=== PATIENT | female | born 1935 | race Caucasian/White ===

== ENCOUNTER → 2019-11-17 14:12 | Outpatient (REF) | payer MEDICARE, SELFPAY | LOC: ANHLAB 14:12 | PROVIDERS: PCP Family Medicine; Visit Provider Nurse Practitioner | DX: L57.0 Actinic keratosis (principal) | CPT/HCPCS: 88305 ==

== ENCOUNTER → 2019-12-03 12:24 | Outpatient (REF) | payer MEDICARE, SELFPAY | LOC: ANHLAB 12:24 | PROVIDERS: PCP Family Medicine; Visit Provider Nurse Practitioner | DX: L85.8 Other specified epidermal thickening (principal) | CPT/HCPCS: 88305 ==

== ENCOUNTER 2020-12-10 18:17 | Emergency (ER) | payer MEDICARE, SELFPAY ==
--- NOTE | 2020-12-10 18:53 | ED.WOUNDLAC ---
HPI - Wound/Laceration General Chief Complaint: Wound/Laceration Stated Complaint: Cut finger Lt hand Source: patient and RN notes reviewed Limitations: no limitations History of Present Illness HPI narrative: The right-handed patient , on several routine meds, presents with finger injury. Patient states several hours prior to arrival she sustained a deep abrasion/tangential avulsion cut to her distal, left index finger while working on new furniture with scissors. She complains of continued mild bleeding; aspirin is her only vasoactive medication. Symptoms are mild, best with compression or elevation but still bleeding after several hours. She declines tetanus immunization; discussed plan to provide wound cleansing and Surgicel application. Related Data Home Medications Medication Instructions Recorded Confirmed aspirin 81 mg tablet 81 mg PO DAILY 11/17/19 12/11/20 cetirizine 10 mg tablet 5 mg PO DAILY 11/17/19 12/11/20 cholecalciferol (vitamin D3) 50 50 mcg PO DAILY 11/17/19 12/11/20 mcg (2,000 unit) capsule ezetimibe 10 mg tablet 10 mg PO DAILY tablet 11/17/19 12/11/20 metoprolol succinate 50 mg 50 tablet PO DAILY 11/17/19 12/11/20 tablet,extended release 24 hr triamterene 37.5 1 tablet PO DAILY tablet 11/17/19 12/11/20 mg-hydrochlorothiazide 25 mg tablet vit C 250 mg-vit E 90 mg-zinc 40 2 tablet PO DAILY cap 11/17/19 12/11/20 mg-copper 1 oy-syqihq-cxzwey capsule Allergies Allergy/AdvReac Type Severity Reaction Status Date / Time metronidazole [From Flagyl] Allergy Intermediate Gastrointestinal Verified 12/11/20 11:06 Upset terbinafine [From Lamisil] Allergy Intermediate Gastrointestinal Verified 12/11/20 11:06 Upset lisinopril Allergy Unknown Unknown Verified 12/11/20 11:06 codeine AdvReac Intermediate Nausea and Verified 12/11/20 11:06 Vomiting Review of Systems Review of Systems: General/Constitutional: No weight loss,fever Eyes: N0: Redness,discharge Ears/Nose/Throat: No: Epistaxis,ear discharge Respiratory: Denies: Hemoptysis Gastrointestinal: No Vomiting, Bleeding-rectal Skin: No Lumps, eruption Neurologic: No Focal Weakness,Sz Hematologic: Denies: Petechiae/Purpura Psychiatric: No: Suicida ideationl All Other Systems: Reviewed and Negative [facility] Surgical History Surgical History History of cholecystectomy 1972 History of thyroid surgery 1986 Family History Family History Other Family history of malignant neoplasm of thyroid Hypertension Social History Social History Smoking status: Never smoker Alcohol intake: never Substance use: never Substance use type: does not use Comments At time of signature, agree with nursing past medical, surgical, social and family history. There is no relevant family history pertinent to the presenting complaint Exam Narrative: General Appearance: Well appearing, No distress Mouth/Throat: Normal appearing, Normal lips,: Supple Respiratory: Airway patent, No respiratory distress Musculoskeletal: Full ROM Skin: Warm, Dry; smaller ~4 x15 mm long deep abrasion/tangential avulsion radial aspect of the index MCP J area Neurological: A&O x3, CN II-X intact Psychiatric: Normal mood, Normal affect Course Vital Signs Vital signs: Vital Signs Temperature 96.9 F L 12/10/20 19:00 Pulse Rate 71 12/10/20 19:00 Respiratory Rate 16 12/10/20 19:00 Blood Pressure 146/57 H 12/10/20 19:00 Pulse Oximetry 100 12/10/20 19:00 Temperature 96.9 F L 12/10/20 19:00 Pulse Rate 71 12/10/20 19:00 Respiratory Rate 16 12/10/20 19:00 Blood Pressure 146/57 H 12/10/20 19:00 Pulse Oximetry 100 12/10/20 19:00 Discharge Plan Discharge Clinical Impression: Abrasion Patient Disposition: Home, Self-Care Condition: Imp
[2020-12-10 19:00] VITALS: BP 146/57; PULSE 71; RESP 16; TEMP 36.1; O2SAT 100
== END 2020-12-10 19:05 | disposition home or self-care (01) ==
PROVIDERS: Emergency Provider Emergency Medicine; PCP Family Medicine
DX: S60.417A Abrasion of left little finger, initial encounter (principal); W27.2XXA Contact with scissors, initial encounter; E78.00 Pure hypercholesterolemia, unspecified; I10 Essential (primary) hypertension; M19.90 Unspecified osteoarthritis, unspecified site; E89.0 Postprocedural hypothyroidism
CPT/HCPCS: 99213; G0463

== ENCOUNTER 2022-09-20 09:50 | Outpatient (CLI) | payer MEDICARE, SELFPAY ==
--- NOTE | ~2022-09-20 | US_ITS ---
EXAMINATION: US renal BI DATE: 09/20/2022 10:46 INDICATION: N18.32 - Chronic kidney disease, stage 3b TECHNIQUE: Multiple grayscale and Doppler ultrasound images of the kidneys were obtained. COMPARISON: 01/05/2015; CT abdomen 01/20/2009 FINDINGS: The right kidney measures 8.9 x 3.7 x 5.2 cm. The left kidney measures 8.0 x 3.9 x 3.9 cm. The kidney s demonstrate increased parenchymal echogenicity with cortical scarring. 1.3 cm circumscribed exophyt ic right lower pole lesion, with low-level internal echogenicity, 74 Hounsfield units in the prior CT , unchanged in size or morphology. There is mild right pelviectasis. The bladder is normal. IMPRESSION: Medical renal disease. Mild right hydronephrosis. Hemorrhagic or proteinaceous right inferior pole cy st. Reviewed, dictated and finalized at location K. IMPRESSION: Medical renal disease. Mild right hydronephrosis. Hemorrhagic or proteinaceous right inferior pole cyst.
== END 2022-09-20 09:51 | disposition home or self-care (01) ==
LOC: ANHIMG 09:53
PROVIDERS: PCP Family Medicine; Visit Provider Internal Medicine Nephrology
DX: N18.32 Chronic kidney disease, stage 3b (principal)
CPT/HCPCS: 76775

== ENCOUNTER 2022-10-01 09:35 | Outpatient (CLI) | payer MEDICARE, SELFPAY ==
--- NOTE | ~2022-10-01 | NM_ITS ---
EXAMINATION: LAURA luna renal scan DATE: 10/01/2022 10:57 INDICATION: Hydronephrosis TECHNIQUE: 7.8 mCi Tc-99m MAG3 was administered IV. 40 mg furosemide was administered IV immediately afterward. The patient was scanned in the supine position. A posterior abdominal radionuclide angiog adilia was obtained. A subsequent time course of static images of the kidneys, ureters, and bladder was obtained. COMPARISON: None FINDINGS: The posterior abdominal radionuclide angiogram and sequential static images show normal size, positio n, and morphology of the kidneys. Peak renal parenchymal uptake was 1.8 min in left kidney and 6.5 mi n in right kidney (normal peak 3-5 minutes). The relative early renal uptake was 47% on the left and 53% on the right (<40% is abnormal). No abnormalities of the ureters or bladder are seen. T1/2 for clearance of activity from the left kidney and proximal collecting system was 10.7 minutes. T1/2 for clearance of activity from the right kidney and proximal collecting system was 28 minutes. Notes on interpretation: T1/2 <10 minutes is normal, 10-15 minutes is low grade obstruction of questi onable clinical significance, 15-20 minutes is partial obstruction that is likely clinically signific ant, >20 minutes is high grade obstruction. Note that false positives may be seen with supine positio hudson, dehydration, severely dilated nonobstructed kidney, atonic collecting system, poor renal functi on, and chronic furosemide use. IMPRESSION: 1. Symmetric kidney function. 2. Delayed activity clearance from the right kidney which would be consistent with high-grade obstru ction although severity could be overestimated in the setting of coincidental dehydration, atonic col lecting system, poor renal function or chronic furosemide use. Reviewed, dictated and finalized at location B. IMPRESSION: 1. Symmetric kidney function. 2. Delayed activity clearance from the right kidney which would be consistent with high-grade obstruction although severity could be overestimated in the set ting of coincidental dehydration, atonic collecting system, poor renal function or chronic furosemide use.
== END 2022-10-01 09:36 | disposition home or self-care (01) ==
PROVIDERS: PCP Family Medicine; Visit Provider Internal Medicine Nephrology
DX: N13.30 Unspecified hydronephrosis (principal)
CPT/HCPCS: 78708; A9562

== ENCOUNTER 2022-10-31 09:17 | Outpatient (CLI) | payer MEDICARE, SELFPAY ==
--- NOTE | ~2022-10-31 | XR_ITS ---
Clinical Indication: Cough PA and lateral views of the chest: Comparison: 11/21/2016 Findings: The lungs are clear, without evidence of focal consolidation or pleural effusion. COPD alex jaspreet present. Cardiomediastinal silhouette is within normal limits. Stable chronic right rib fracture deformities noted. Impression: COPD. Clear lungs. Reviewed, dictated and finalized at location . Impression: COPD. Clear lungs.
== END 2022-10-31 09:18 | disposition home or self-care (01) ==
PROVIDERS: PCP Family Medicine; Visit Provider Physician Assistant Medical
DX: R05.3 Chronic cough (principal); J44.9 Chronic obstructive pulmonary disease, unspecified
CPT/HCPCS: 71046

== ENCOUNTER 2023-01-10 10:16 | Outpatient (CLI) | payer MEDICARE, SELFPAY ==
--- NOTE | ~2023-01-10 | US_ITS ---
EXAMINATION: US venous doppler UE RT DATE: 01/10/2023 11:48 INDICATION: Right upper extremity pain TECHNIQUE: Grayscale ultrasound images without and with compression and Doppler ultrasound images of the right upper extremity veins were obtained. COMPARISON: None. FINDINGS: The right internal jugular vein, subclavian vein, axillary vein, brachial veins, basilic vein, cephal ic vein, radial vein, and ulnar vein are patent. There is an approximately 2.3 x 0.8 cm complex hypoe choic area corresponding to the region of clinical interest. IMPRESSION: 1. No evidence of deep venous thrombosis. 2. Complex hypoechoic area corresponding to the region of clinical interest which could reflect under lying hematoma or other injury. Recommend continued clinical follow-up with additional imaging if cli nical findings do not resolve. Reviewed, dictated and finalized at location L. SECRETARY IMPRESSION: 1. No evidence of deep venous thrombosis. 2. Complex hypoechoic area corresponding to the region of clinical interest whi ch could reflect underlying hematoma or other injury. Recommend continued clini latisha follow-up with additional imaging if clinical findings do not resolve.
== END 2023-01-10 10:17 | disposition home or self-care (01) ==
PROVIDERS: PCP Family Medicine; Visit Provider Physician Assistant Medical
DX: M79.601 Pain in right arm (principal); M79.89 Other specified soft tissue disorders
CPT/HCPCS: 93971

== ENCOUNTER 2023-01-31 12:33 | Outpatient (CLI) | payer MEDICARE, SELFPAY ==
--- NOTE | ~2023-01-31 | MR_ITS ---
MRI of the right shoulder Technique: Axial proton-density fat-sat images, coronal proton density fat-sat and T2 fat-sat images, and sagittal T1-weighted and T2 fat-sat images were acquired. Clinical History: Pain Findings: There is mild AC joint degenerative change. There is mild bony reactive change of the dista l clavicle. Coracoclavicular, coracoacromial, and coracohumeral ligaments are intact. There is full-thickness tearing of the anterior to central portion of the distal supraspinatus tendon , with regional full-thickness tear measuring 1.0 x 1.0 cm in extent. There is background moderate mckeon praspinatus and infraspinatus tendinosis. No partial or full-thickness infraspinatus tendon tear seen . Subscapularis tendon is intact. Tendon of long head of the biceps is not clearly visualized, presum ably ruptured and retracted distally. No definite labral tear identified. Probable sub-labral foramen at the anterosuperior aspect. Inferior humeral ligament is intact. No significant degenerative change of the glenohumeral joint. Th ere is fluid in the subacromial/subdeltoid bursa, presumably related to the underlying rotator cuff t ear. No muscle atrophy or edema evident. Impression: 1.0 x 1.0 cm full-thickness tear of the distal supraspinatus tendon insertion. Probable complete rupture of the proximal long head biceps tendon, with retraction distally beyond th e [id number] of the exam. Mild AC joint degenerative change. Reviewed, dictated and finalized at location . 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 Probable complete rupture of the proximal long head biceps tendon, with retract ion distally beyond the [id number] of the exam. Mild AC joint degenerative change.
== END 2023-01-31 12:34 | disposition home or self-care (01) ==
PROVIDERS: PCP Family Medicine; Visit Provider Nurse Practitioner Family
DX: M79.601 Pain in right arm (principal); M79.89 Other specified soft tissue disorders; R29.2 Abnormal reflex; M25.511 Pain in right shoulder
CPT/HCPCS: 73221

== ENCOUNTER 2023-02-20 10:39 | Outpatient (CLI) | payer MEDICARE, SELFPAY ==
--- NOTE | ~2023-02-20 | US_ITS ---
Renal-Bladder ultrasound Clinical History: Chronic kidney disease Technique: Real-time sonographic imaging of the kidneys and urinary bladder was performed. Findings: The right kidney measures 8.5 cm in length and the left kidney measures 8.8 cm. There is mi ld fullness of the right renal pelvis. No left hydronephrosis. Renal cortical echogenicity is within normal limits. No renal mass lesion is identified. The urinary bladder is moderately distended at the time of this exam. No intraluminal echoes are iden tified. No abnormal wall thickening is seen. Impression: Suspected right extrarenal pelvis versus possibly minimal hydronephrosis. Reviewed, dictated and finalized at location M. 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
== END 2023-02-20 10:40 | disposition home or self-care (01) ==
PROVIDERS: PCP Family Medicine; Visit Provider Internal Medicine Nephrology
DX: N18.32 Chronic kidney disease, stage 3b (principal)
CPT/HCPCS: 76775

== ENCOUNTER 2023-03-12 14:25 | Outpatient (NON) | payer MEDICARE, SELFPAY | END 2023-03-12 14:26 | disposition home or self-care (01) | LOC: ANHLAB 03-13 14:27 | PROVIDERS: PCP Family Medicine; Visit Provider Nurse Practitioner | DX: L85.8 Other specified epidermal thickening (principal) | CPT/HCPCS: 88305 ==

== ENCOUNTER 2023-03-21 07:00 | Outpatient (NON) | payer MEDICARE, SELFPAY | END 2023-03-21 07:01 | disposition home or self-care (01) | PROVIDERS: PCP Family Medicine; Visit Provider Nurse Practitioner | DX: L85.8 Other specified epidermal thickening (principal) | CPT/HCPCS: 88305 ==

== ENCOUNTER 2024-04-26 13:27 | Emergency (ER) | payer MEDICARE, SELFPAY ==
--- NOTE | ~2024-04-26 | XR_ITS ---
CHEST RADIOGRAPH, PA AND LATERAL CLINICAL HISTORY: weakness, cough . COMPARISON: 10/31/2022 TECHNIQUE: PA and lateral views of the chest. FINDINGS The cardiomediastinal silhouette is unremarkable. The lungs are clear. Evidence of prior fracture deformity of the right upper ribs. IMPRESSION: No focal infiltrate or effusion. Reviewed, dictated and finalized at location A. GE PREVENTION COORDINATOR
--- OUTSIDE RECORDS SUMMARY | 2024-04-26 13:29 | XMS_ITS | Continuity of Care Document ---
Author Organization [facility] Address [address] [place] [address] [place] [address] Phone Care Team Providers Care Cam Maker Name Role Phone Jocelyn Kessler Unavailable Unavailable Procedures Procedure Date Office/outpatient Visit, Est Post-op Follow-up Visit Post-op Follow-up Visit Post-op Follow-up Visit Remove Cataract, Insert Lens Eye Exam & Treatment IOL[employer]-Professional Advance Directives Directive Yes / No Effective Date File Name No Information Encounters Encounter Description Practice Location Reason(s) For Visit Diagnoses Date Provider Providers Copied on Encounter Office/outpat ient Visit, Est [facility], [address] [place] [address] [address], [place], [place], [id number], tel:[phone] [facility] No Information 7-200 7 Victoria [address] , [address], [place], [address], [place]. tel:[phone] [facility], [address] [place] [address] [address], [place], [place], [id number], [place] tel:[phone] [facility] No Information 9[address] Victoria [address] , [address], [place], [address], [place]. tel:[phone] [facility], [address] [place] [address] [address], [place], [place], [id number], tel:[phone] [facility] No Information May-1 1-200 7 Victoria Banks. [address] [facility] , [address], [place], [place], [facility], . tel:[phone] [facility], [address] [place] [address] [address], [place], [place], [id number], tel:[phone] [facility] No Information May-0 3-200 7 Victoria [address]ru[address]. [address] [facility] , [address], [place], [place], [facility], . tel:[phone] [facility], [address] [place] [address] [address], [place], [place], [id number], tel:[phone] [facility] No Information May-0 2-200 7 Victoria Banks. [address] [facility] , [address], [place], [place], [facility], [place]. tel:[phone] [facility], [address] [place] [address] [address], [place], [place], [id number], tel:[phone] [facility] No Information Apr-2 0-200 7 Victoria Banks. [address] [facility] , [address], [place], [place], [facility], [place]. tel:[phone] Referring Provider: Jocelyn Gonzalez [address] [facility] [address], [place], [place], [facility]. tel:[phone] Family History Family Member Type Diagnosis Age At Onset No Information Payers Payer name Insurance type Covered democrat ID Jamiea janinamiguel(s) [place] [id number] Social History Type Description Quantity Date Captured Comments Sex Female Smoking Status No Information Chief Complaint And Reason For Visit No Information Reason For Referral Reason For Referral No Information History Of Present Illness Encounter Date Complaint History Of Prese nt Illness No Information Functional Status Date Functional Assessmen t No Information Instructions Date Instruction Additional Infor mation No Information Assessments Type Assessment Date No Information Patient Care Teams Name Effective Dates (start - stop) Status Members No Information
--- OUTSIDE RECORDS SUMMARY | 2024-04-26 13:29 | XMS_ITS | Clinical Summary ---
Author Organization [facility] Address [address] [place] [address] Phone Care Team Providers Care Java Manager Name Role Phone Sandro Kim MD Primary Care Provider [phone] Allergies Active Allergy Reactions Criticality Noted Date Comments Codeine 10/19/2018 Lisinopril Cough 10/19/2018 Meloxicam 07/10/2016 Metronidazole 10/19/2018 Terbinafine Hcl 10/19/2018 Medications Medication Sig Dispensed Refills Start Date End Date Status aspirin (ASPIR-LOW) 81 MG EC tablet 01/01/2015 Active albuterol HFA (PROAIR HFA) 108 (90 Base) MCG/ACT inhaler 2 q6h prn 0 04/07/2018 Active Cholecalciferol (VITAMIN D3) 1000 units capsule 2 daily 0 01/01/2015 Active metoprolol succinate XL (TOPROL-XL) 50 MG 24 hr tablet 1 daily 0 10/09/2017 Active Multiple Vitamins-Minerals (PRESERVISION AREDS 2) capsule 1 daily 0 10/08/2016 Active levothyroxine (SYNTHROID, LEVOTHROID) 50 MCG tablet 01/01/2015 Active SYMBICORT 160-4.5 MCG/ACT inhaler INL 2 PFS PO BID IN THE MORNING AND IN THE GAYLE 1 09/15/2018 Active ezetimibe (ZETIA) 10 MG tablet TK 1 T PO D 03/02/2019 Active pravastatin (PRAVACHOL) 40 MG tablet TK 1 T PO D 03/02/2019 Active mupirocin (BACTROBAN) 2 % ointment CINDI TOPICALLY AA BID 09/22/2019 Active ipratropium (ATROVENT) 0.06 % nasal spray USE 2 SPRAYS NASALLY TWICE DAILY 08/17/2020 Active triamterene-hydroCHL OROthiazide (MAXZIDE-25) 37.5-25 MG per tablet TAKE 1 TABLET BY MOUTH 1 TIME EACH DAY 90 tablet 4 06/19/2021 Active Active Problems Problem Noted Date Diagnosed Date Mixed hyperlipidemia 04/22/2019 Chronic obstructive pulmonary disease 11/12/2017 Proteinuria 04/10/2017 Personal history of non-Hodgkin lymphoma 018 Rheumatoid arthritis 04/10/2017 Stage 3b chronic kidney disease 06/08/2015 Essential (primary) hypertension 06/08/2015 Immunizations Name Administration Dates Next Due DTaP 03/04/2013 Influenza Split High Dose Pr eservative Free IM 01/06/2017 Influenza TIV (IM) 01/20/2019,03/04/2014, 014 Influenza, Quadrivalent 12/03/2015 Pneumococcal Conjugate 13-Valent 11/02/2017,07/2016 Pneumococcal Polysaccharide 03/04/2006 Tdap 10/10/2013 Zoster 10/21/2015 Family History Medical History Relation Comments Cerebrovascular accident Father Kidney disease Neg Hx Kidney stone Neg Hx Relation Status Comments Father Social History Tobacco Use Types Packs/Day Years Used Date Smoking Tobacco: Never Smokeless Tobacco: Never Alcohol Use Standard Drinks/Week Comments Not Currently 0 (1 standard drink = 0.6 oz pur e alcohol) Sex and Gender Information Value Date Recorded Sex Assigned at Not on file Gender Identity Not on file Sexual Orientation Not on file Last Filed Vital Signs Vital Sign Reading Time Taken Comments Blood Pressure 108/60 10/18/2021 9:38 AM CDT Pulse 72 10/18/2021 9:38 AM CDT Temperature 35.7 C (96.3 F) 10/18/2021 9:38 AM CDT Respiratory Rate - - Oxygen Saturation - - Inhaled Oxygen Concentration - - Weight 49 kg (108 lb) 10/18/2021 9:38 AM CDT Height 149.9 cm (4' 11 ) 10/18/2021 9:38 AM CDT Body Mass Index 21.81 10/18/2021 9:38 AM CDT Plan of Treatment Health Maintenance Due Date Last Done Comments Influenza Vaccine (#1) 2023 9, 03/04/2014, 03/04/2013 Pneumococcal PPSV23/PCV13 65 + Years / Low and Medium Risk Completed 11/02/2017, 01/06/2017, 03/04/2006 Care Teams Java Manager Relationship Specialty Start Date End Date Sandro Kim MD [address] [place] [address] PCP - General Family Medicine 10/22/18
--- OUTSIDE RECORDS SUMMARY | 2024-04-26 13:29 | XMS_ITS | Clinical Summary ---
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 Active cetirizine (ZYRTEC) 10 MG tablet Take 1 tablet (10 mg total) by mouth daily. Active levothyroxine (SYNTHROID) 50 MCG tablet Take 1 tablet (50 mcg total) by mouth every morning. Active triamterene-hydroCH LOROthiazide (DYAZIDE) 37.5-25 MG capsule Take 1 capsule by mouth daily. Active metoprolol succinate ER (TOPROL-XL) 50 MG 24 hr tablet Take by mouth daily. Active aspirin EC (ECOTRIN) 81 MG tablet Take 1 tablet (81 mg total) by mouth daily. Active vitamin D3 10 mcg tablet Take 1 tablet (10 mcg total) by mouth daily. Active Multiple Vitamins-Minerals (PRESERVISION AREDS 2 OR) Active benzonatate (TESSALON) 100 MG capsule Take 1 capsule (100 mg total) by mouth 3 (three) times daily as needed for Cough. 20 capsule 5 04/29/19 25 Active traMADol (ULTRAM) 50 MG tabletIndications:A cute Pain < 3 Day Supply Take 0.5 tablets (25 mg total) by mouth every 6 (six) hours as needed for Pain. Indications: Acute Pain < 3 Day Supply 5 tablet 5 Active ondansetron (ZOFRAN-ODT) 4 MG disintegrating tablet Take 1 tablet (4 mg total) by mouth every 8 (eight) hours as needed for Nausea. 20 tablet 5 Active Encounters Date Type Department Care Team Description 04/22/2024 12:52 PM RADIATION PROTECTION SPECIALIST - 04/22/2024 4:30 PM RADIATION PROTECTION SPECIALIST Emergency [facility] Emergency Room [address] [place] [address] Francisco Barreto MD Cough Discharge Disposition: Home or Self Care (Routine Discharge) 04/22/2024 Travel from Last 3 Months Social History Tobacco Use Types Packs/Day Years Used Date Smoking Tobacco: Never Assessed Comments Unknown Sex and Gender Information Value Date Recorded Sex Assigned at Female 04/22/2024 12:49 PM RADIATION PROTECTION SPECIALIST Legal Sex Female 12:38 PM RADIATION PROTECTION SPECIALIST Gender Identity Not on file Sexual Orientation Not on file Last Filed Vital Signs Vital Sign Reading Time Taken Comments Blood Pressure 140/82 04/22/2024 4:36 PM RADIATION PROTECTION SPECIALIST Pulse 65 04/22/2024 4:36 PM RADIATION PROTECTION SPECIALIST Temperature 36.6 C (97.8 F) 04/22/2024 12:58 PM RADIATION PROTECTION SPECIALIST Respiratory Rate 16 04/22/2024 4:36 PM RADIATION PROTECTION SPECIALIST Oxygen Saturation 98% 04/22/2024 4:36 PM RADIATION PROTECTION SPECIALIST Inhaled Oxygen Concentration - - Weight 45.4 kg (100 lb) 04/22/2024 12:58 PM RADIATION PROTECTION SPECIALIST Height 152.4 cm (5') 04/22/2024 12:58 PM RADIATION PROTECTION SPECIALIST Body Mass Index 19.53 04/22/2024 12:58 PM RADIATION PROTECTION SPECIALIST Plan of Treatment Health Maintenance Due Date Last Done Comments Annual Medicare Wellness Visit 2001 RSV Immunization or 60+ Years (1 - 1-dose 75+ series) 07/02/2011 Zoster Vaccines (2 of 3) 12/16/2015 10/21/2015 DTaP, Tdap and Td Vaccines (3 - Td or Tdap) 10/11/2023 10/10/2013, 03/04/2013 COVID-19 Vaccine (3 - season) 2023 06/01/2020, 05/03/2020 Influenza Adult (#1) 2023 03/17/2021, 01/20/2019, 01/06/2017, Additional history exists Pneumococcal Vaccine: 65+ Years Completed 11/02/2017, 01/06/2017, 03/04/2006 Meningococcal B Vaccine Aged Out No l onger eligible based on patient's age to complete this topic Meningococcal Vaccine Aged Out No ena huy eligible based on patient's age to complete this topic RSV Immunizations Under 20 Months Aged Out No longer eligible based on patient's age to complete this topic Procedures Procedure Name Priority Date/Time Associated Diagnosis Comments CT ABD+PEL W CON STAT 04/22/2024 3:25 PM RADIATION PROTECTION SPECIALIST URINALYSIS MICRO ONLY STAT 04/22/2024 2:35 PM RADIATION PROTECTION SPECIALIST HC URINALYSIS AUTO W/O MICRO STAT 04/22/2024 2:35 PM RADIATION PROTECTION SPECIALIST XR CHEST PORTABLE STAT 04/22/2024 1:2 5 PM RADIATION PROTECTION SPECIALIST STREP A RAPID STAT 04/22/2024 1:25 PM RADIATION PROTECTION SPECIALIST ECG 12-LEAD STAT 04/22/2024 1:20 PM RADIATION PROTECTION SPECIALIST CORONAVIRUS (COVID 19) STAT 1:10 PM RADIATION PROTECTION SPECIALIST PRO-BRAIN NATRIURETIC PEPTIDE STAT 04/22/2024 1:00 PM RADIATION PROTECTION SPECIALIST TROPONIN, QUANT STAT 04/22/2024 1:00 PM RADIATION PROTECTION SPECIALIST COMPREHENSIVE METABOLIC PANEL STAT 04/22/2024 1:00 PM RADIATION PROTECTION SPECIALIST CBC W/DIFF AUTOMATED STAT 04/22/2024 1:00 PM RADIATION PROTECTION SPECIALIST INFLUENZA A & B STAT 04/22/2024 12:10 PM RADIATION PROTECTION SPECIALIST RESP SYNCYTIAL VIRUS STAT 04/22/2024 12:10 PM RADIATION PROTECTION SPECIALIST from Last 3 Months Results * CT ABD+PEL W CON (04/22/2024 3:25 PM RADIATION PROTECTION SPECIALIST) Anatomical Region Laterality Modality Abdomen Computed Tomogra phy 04/22/2024 3:32 PM RADIATION PROTECTION SPECIALIST Impressions 04/22/2024 3:58 PM RADIATION PROTECTION SPECIALIST IMPRESSION: SMALL HIATAL HERNIA. SOLITARY SUBCENTIMETER PROBABLE INTRAHEPATIC AND BILATERAL RENAL CORTICAL CYSTS, ALTHOUGH TOO SMALL TO CHARACTERIZE. 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 Referred By: Interpreted By: Elijah Pretty MD, 04/22/2024 3:32 PM Narrative 04/22/2024 3:58 PM RADIATION PROTECTION SPECIALIST [facility] [address] [facility] [place] [address] EXAM: CT ABD+PEL W CON INDICATION: Mid and lower abdominal pelvic pain. TECHNIQUE: CT of the abdomen and pelvis, from the lung bases to pubic symphysis, performed. Patient received 75 mL Isovue 370 with no adverse reaction. Multiplanar reformatted images were created and reviewed. A radiation dose lowering technique was used for this procedure, which may include, but is not limited to, dose reduction technique, automated exposure control, the use of iterative reconstruction, ALARA (As Low As Reasonably Achievable) techniques, and Image Gently techniques. COMPARISON EXAM: None FINDINGS: No consolidation or effusion in either lung base. Small hiatal hernia. Small probable intrahepatic cyst in the posterior segment of the right lobe. Normal size spleen. No pancreatic or peripancreatic abnormality. No adrenal mass or enlargement. Bilateral hypodense renal lesions, several of which are too small to characterize. Urinary bladder is partially collapsed and unremarkable. Uterus and ovaries are surgically absent and/or atrophic. No bowel obstruction or free air. Normal appendix. Colonic diverticula with no diverticulitis. No abdominal or pelvic adenopathy or free fluid. Tortuous abdominal aorta with moderate atheromatous disease and partially calcified plaque. No aneurysm or significant abdominal aortic branch vessel stenosis or occlusion. 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 No acute skeletal abnormality. Procedure Note Elijah Pretty MD - 04/22/2024 [facility] [address] [place] [address] EXAM: CT ABD+PEL W CON INDICATION: Mid and lower abdominal pelvic pain. TECHNIQUE: CT of the abdomen and pelvis, from the lung bases to pubicsymphysis, performed. Patient received 75 mL Isovue 370 with no adversereaction. Multiplanar reformatted images were created and reviewed. A radiation dose lowering technique was used for this procedure, which mayinclude, but is not limited to, dose reduction technique, automatedexposure control, the use of iterative reconstruction, ALARA (As Low AsReasonably Achievable) techniques, and Image Gently techniques. COMPARISON EXAM: None FINDINGS: No consolidation or effusion in either lung base. Small hiatalhernia. Small probable intrahepatic cyst in the posterior segment of theright lobe. Normal size spleen. No pancreatic or peripancreaticabnormality. No adrenal mass or enlargement. Bilateral hypodense renallesions, several of which are too small to characterize. Urinary bladderis partially collapsed and unremarkable. Uterus and ovaries aresurgically absent and/or atrophic. No bowel obstruction or free air.Normal appendix. Colonic diverticula with no diverticulitis. Noabdominal or pelvic adenopathy or free fluid. Tortuous abdominal aortawith moderate atheromatous disease and partially calcified plaque. Noaneurysm or significant abdominal aortic branch vessel stenosis orocclusion. Mild thoracolumbar and sacral spondylosis and pelvicarthritis. No acute skeletal abnormality. IMPRESSION: SMALL HIATAL HERNIA. SOLITARY SUBCENTIMETER PROBABLE INTRAHEPATIC AND BILATERAL RENAL CORTICALCYSTS, ALTHOUGH TOO SMALL TO CHARACTERIZE. 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 Referred By: Interpreted By: Elijah Pretty MD, 04/22/2024 3:32 PM Francisco Barreto MD CT Final Result * (ABNORMAL) URINALYSIS (04/22/2024 2:35 PM RADIATION PROTECTION SPECIALIST) COLOR (U) YELLOW 04/22/2024 2:48 PM RADIATION PROTECTION SPECIALIST [facility] TRANSPARENCY HAZY 04/22/2024 2:48 PM RADIATION PROTECTION SPECIALIST [facility] SPECIFIC GRAVITY (U) 1.010 1.000 - 1.030 04/22/2024 2:48 PM RADIATION PROTECTION SPECIALIST [facility] U PH 6.0 5.0 - 9.0 04/22/2024 2:48 PM RADIATION PROTECTION SPECIALIST [facility] LEUKOCYTES (U) NEGATIVE NEGATIVE 04/22/2024 2:48 PM RADIATION PROTECTION SPECIALIST [facility] NITRITES NEGATIVE NEGATIVE 04/22/2024 2:48 PM [facility] PROTEIN RANDOM (U) 1+(A) NEGATIVE 04/22/2024 2:48 PM RADIATION PROTECTION SPECIALIST [facility] GLUCOSE (U) NEGATIVE NEGATIVE 04/22/2024 2:48 PM RADIATION PROTECTION SPECIALIST [facility] KETONES MG/DL (U) NEGATIVE NEGATIVE 04/22/2024 2:48 PM [facility] BILIRUBIN (U) NEGATIVE NEGATIVE 04/22/2024 2:48 PM RADIATION PROTECTION SPECIALIST [facility] BLOOD (U) TRACE(A) NEGATIVE 04/22/2024 2:48 PM [facility] URINE, STRAIGHT CATH 04/22/2024 2:35 PM RADIATION PROTECTION SPECIALIST Francisco Barreto MD URINE ORDERABLES Final Result [facility] [address] [place] [address], * URINALYSIS MICRO ONLY (04/22/2024 2:35 PM RADIATION PROTECTION SPECIALIST) WBC/HPF NONE SEEN 0 - 5 /HPF 04/22/2024 2:48 PM RADIATION PROTECTION SPECIALIST [facility] RBC/HPF 0-5 0 - 5 /HPF 04/22/2024 2:48 PM RADIATION PROTECTION SPECIALIST [facility] EPI/HPF FEW /HPF 04/22/2024 2:48 PM RADIATION PROTECTION SPECIALIST [facility] 04/22/2024 2:35 PM RADIATION PROTECTION SPECIALIST Francisco Barreto MD URINE ORDERABLES Final Result [facility] [address] [place] [id number], * XR CHEST PORTABLE (04/22/2024 1:25 PM RADIATION PROTECTION SPECIALIST) Anatomical Region Laterality Modality Chest Radiographic Tasia ging 04/22/2024 1:36 PM RADIATION PROTECTION SPECIALIST Impressions 04/22/2024 1:37 PM RADIATION PROTECTION SPECIALIST IMPRESSION: NO ACUTE CHEST DISEASE. Referred By: Interpreted By: Elijah Pretty MD, 04/22/2024 1:36 PM Narrative 04/22/2024 1:37 PM RADIATION PROTECTION SPECIALIST [facility] [address] [facility] [place] [address] EXAM: XR CHEST PORTABLE INDICATION: Cough. TECHNIQUE: AP upright view of the chest obtained. COMPARISON EXAM: None FINDINGS: Mild hyperinflation with pleural-parenchymal scarring. No acute consolidation or effusion. Normal heart size and pulmonary vascular caliber. Old healed right-sided rib fracture. No acute skeletal abnormality. Procedure Note Elijah Pretty MD - 04/22/2024 [facility] [address] [facility] [place] [address] EXAM: XR CHEST PORTABLE INDICATION: Cough. TECHNIQUE: AP upright view of the chest obtained. COMPARISON EXAM: None FINDINGS: Mild hyperinflation with pleural-parenchymal scarring. No acuteconsolidation or effusion. Normal heart size and pulmonary vascularcaliber. Old healed right-sided rib fracture. No acute skeletalabnormality. IMPRESSION: NO ACUTE CHEST DISEASE. Referred By: Interpreted By: Elijah Pretty MD, 04/22/2024 1:36 PM Francisco Barreto MD GENERAL IMAGING Final Result * STREP A RAPID (04/22/2024 1:25 PM RADIATION PROTECTION SPECIALIST) RAPID STREP TEST NEGATIVE NEGATIVE 04/22/2024 1:38 PM RADIATION PROTECTION SPECIALIST [facility] 04/22/2024 1:25 PM RADIATION PROTECTION SPECIALIST us Francisco Barreto MD MICROBIOLOGY - GENERAL ORDERABL ES Final Result [facility] [address] [place] [address], * ECG 12 lead (04/22/2024 1:20 PM RADIATION PROTECTION SPECIALIST) 04/22/2024 1:20 PM RADIATION PROTECTION SPECIALIST Narrative [facility] RAD - 04/22/2024 5:15 PM RADIATION PROTECTION SPECIALIST [facility] Test Date: 2024-04-22 Pat Name: [facility] Department: Room: EXAM 303 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1935 Requested By: FRANCISCO BARRETO Order Number: [id number] Reading MD: Mateo Flores Measurements Intervals [place] Rate: 61 P: 88 WA: 165 QRS: 60 QRSD: 89 T: 78 QT: 402 QTc: 407 Interpretive Statements SINUS RHYTHM WITH FREQUENT SUPRAVENTRICULAR PREMATURE COMPLEXES IN A BIGEMINAL PATTERN ABNORMAL RHYTHM ECG No previous ECG available for comparison ATION PROTECTION SPECIALIST Procedure Note Mateo Flores MD - 04/22/2024 [facility] Test Date: 2024-04-22 Pat Name: [facility] Department: Room: EXAM 303 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1935 Requested By: FRANCISCO Conley Number: [id number] Reading MD: Mateo Flores Measurements Intervals [place] Rate: 61 P: 88 WA: 165 QRS: 60 QRSD: 89 T: 78 QT: 402 QTc: 407 Interpretive Statements SINUS RHYTHM WITH FREQUENT SUPRAVENTRICULAR PREMATURE COMPLEXES IN A BIGEMINAL PATTERN ABNORMAL RHYTHM ECG No previous ECG available for comparison ATION PROTECTION SPECIALIST Francisco Barreto MD ECG ORDERABLES Final Result Performing Organization Address [facility]/ZIP Co de Phone Number [facility] ([facility] RAD * CORONAVIRUS (COVID-19) MOLECULAR (04/22/2024 1:10 PM RADIATION PROTECTION SPECIALIST) Pathologist [facility] CORONAVIRUS SARS COV 2 RNA NEGATIVE NEGATIVE 04/22/2024 1:31 PM RADIATION PROTECTION SPECIALIST [facility] Comment: NEGATIVE RESULTS DO NOT RULE OUT COVID 19 AND SHOULD NOT BE USED THE SOLE BASIS FOR TREATMENT OR PATIENT MANAGEMENT DECISIONS, INCLUDING INFECTION CONTROL DECISIONS. NEGATIVE RESULTS SHOULD BE CONSIDERED IN THE CONTEXT OF A PATIENT'S RECENT EXPOSURES, HISTORY AND THE PRESENCE OF CLINICAL SIGNS AND SYMPTOMS CONSISTENT WITH COVID 19. THE ID NOW COVID-19 2.0 TEST HAS BEEN AUTHORIZED BY THE FDA UNDER EAU FOR USE BY AUTHORIZED LABORATORIES. PERFORMED BY NUCLEIC ACID AMPLIFICATION FOR MOLECULAR QUALITATIVE DETECTION OF SARS-COV-2. SPECIMEN TYPE NASAL 04/22/2024 1:26 PM RADIATION PROTECTION SPECIALIST [facility] NASOPHARYNGEAL SWAB / Unknown 04/22/2024 1:10 PM RADIATION PROTECTION SPECIALIST Francisco Barreto MD MICROBIOLOGY - GENERAL ORDERABL ES Final Result Performing Organization Address [facility]/ZIP Co de Phone Number [facility] [address] [place] [address], * (ABNORMAL) PRO-BRAIN NATRIURETIC PEPTIDE (04/22/2024 1:00 PM RADIATION PROTECTION SPECIALIST) Pathologist [facility] PRO-B TYPE NATRIURETIC PEPTIDE 891(H) <450 PG/ML 04/22/2024 1:50 PM RADIATION PROTECTION SPECIALIST [facility] Comment: CUT POINTS ESTABLISHED BY INTERNATIONAL COLLABORATIVE ON NT PROBNP (ICON) STUDY (2006). AGE INDEPENDENT: <300 PG/ML HAS A 99% NEGATIVE PREDICTIVE VALUE FOR EXCLUDING ACUTE CHF <50 YEARS: >450 PG/ML IS CONSISTENT WITH ACUTE CHF 50-75 YEARS: >900 PG/ML IS CONSISTENT WITH ACUTE CHF >75 YEARS: >1800 PG/ML IS CONSISTENT WITH ACUTE CHF IN PATIENTS WITH RENAL INSUFFICIENCY (GFR <60), >1200 PG/ML YIELDS A DIAGNOSTIC SENSITIVITY AND SPECIFICITY OF 89% AND 72% FOR ACUTE CHF. 04/22/2024 1:00 PM RADIATION PROTECTION SPECIALIST us Francisco Barreto MD LABORATORY Final Result [facility] [address] [place] [address], * (ABNORMAL) COMPREHENSIVE METABOLIC PANEL (04/22/2024 1:00 PM RADIATION PROTECTION SPECIALIST) GLUCOSE 117(H) 70 - 99 MG/DL 04/22/2024 1:50 PM [facility] BUN 19(H) 7 - 18 MG/DL 04/22/2024 1:50 PM [facility] CREATININE S/P/B 1.17(H) 0.55 - 1.02 MG/DL 04/22/2024 1:50 PM [facility] SODIUM S/P/B 132(L) 136 - 145 MMOL/L 04/22/2024 1:50 PM [facility] POTASSIUM S/P/B 3.8 3.5 - 5.1 MMOL/L 04/22/2024 1:50 PM [facility] CHLORIDE S/P/B 93(L) 100 - 108 MMOL/L 04/22/2024 1:50 PM [facility] CO2 31.6 21 - 32 MMOL/L 04/22/2024 1:50 PM [facility] CALCIUM S/P/B 9.0 8.5 - 10.1 MG/DL 04/22/2024 1:50 PM [facility] BILIRUBIN TOTAL S/P/B 0.4 0.2 - 1.2 MG/DL 04/22/2024 1:50 PM [facility] TOTAL PROTEIN S/P/B 7.1 6.4 - 8.2 G/DL 04/22/2024 1:50 PM [facility] ALBUMIN S/P/B 4.0 3.4 - 5.0 G/DL 04/22/2024 1:50 PM [facility] AST 38(H) 15 - 37 U/L 04/22/2024 1:50 PM [facility] ALT 43 14 - 55 U/L 04/22/2024 1:50 PM [facility] ALKALINE PHOSPHATASE S/P/B 82 50 - 136 U/L 04/22/2024 1:50 PM [facility] ANION GAP 7.4 5 - 15 MMOL/L 04/22/2024 1:50 PM [facility] BUN CREATININE RATIO 16.2 6 - 26 04/22/2024 1:50 PM [facility] A/G RATIO 1.3 1.0 - 2.0 RATIO 04/22/2024 1:50 PM [facility] GFR ESTIMATE 45(L) >90 ML/MIN/1.7 3 M2 04/22/2024 1:50 PM [facility] Comment: NOTE: eGFR is not calculated for patients <18 years of age. This is an estimated GFR calculation using the new CKD EPI creatinine equation without race and so does not require a correction factor for race. This estimated GFR should not be used for calculating drug doses. 04/22/2024 1:00 PM RADIATION PROTECTION SPECIALIST Francisco Barreto MD LABORATORY Final Result [facility] [address] [place] [address], * (ABNORMAL) CBC W/DIFF AUTOMATED (04/22/2024 1:00 PM RADIATION PROTECTION SPECIALIST) WBC 4.92 4.4 - 11.0 x10'3/uL 04/22/2024 1:27 PM RADIATION PROTECTION SPECIALIST [facility] RBC 4.05(L) 4.50 - 5.10 x10'6/uL 04/22/2024 1:27 PM [facility] HGB 12.5 12.3 - 15.3 G/DL 04/22/2024 1:27 PM [facility] HCT 36.9 35.9 - 44.6 % 04/22/2024 1:27 PM [facility] MCV 91.1 80.0 - 96.0 FL 04/22/2024 1:27 PM [facility] MCH 30.9 25.3 - 30.9 PG 04/22/2024 1:27 PM [facility] MCHC 33.9 31.0 - 34.1 G/DL 04/22/2024 1:27 PM [facility] RDW 12.3(L) 12.4 - 15.1 % 04/22/2024 1:27 PM [facility] PLT 218 151 - 353 x10'3/uL 04/22/2024 1:27 PM [facility] MPV 9.2(L) 9.6 - 12.0 FL 04/22/2024 1:27 PM [facility] RBC MORPHOLOGY NORMAL 04/22/2024 1:27 PM [facility] PLT MORPH. NORMAL 04/22/2024 1:27 PM [facility] WBC MORPHOLOGY NORMAL 04/22/2024 1:27 PM [facility] LYMPHOCYTES % 31.7 15.8 - 45.0 % 04/22/2024 1:27 PM [facility] NEUTROPHILS % 59.0 42.1 - 71.9 % 04/22/2024 1:27 PM [facility] MONOCYTES % 8.5 5.7 - 12.5 % 04/22/2024 1:27 PM [facility] EOSINOPHILS 0.0 0.0 - 5.6 % 04/22/2024 1:27 PM [facility] BASOPHILS 0.4 0.0 - 1.3 % 04/22/2024 1:27 PM [facility] ABS. NEUTROPHILS 2.90 1.40 - 6.00 x10'3/uL 04/22/2024 1:27 PM [facility] IMMATURE GRANS % 0.4 0.0 - 0.5 % 04/22/2024 1:27 PM [facility] ABS. LYMPHOCYTES 1.56 0.80 - 4.70 x10'3/uL 04/22/2024 1:27 PM [facility] 04/22/2024 1:00 PM RADIATION PROTECTION SPECIALIST us Francisco Barreto MD LABORATORY Final Result [facility] [address] [place] [address], * TROPONIN, QUANT (04/22/2024 1:00 PM RADIATION PROTECTION SPECIALIST) Pathologist [facility] TROPONIN I HIGH SENSITIVITY 17 0 - 50 ng/L 04/22/2024 1:47 PM RADIATION PROTECTION SPECIALIST [facility] Comment: HIGH DOSES OF BIOTIN, TROPONIN-SPECIFIC AUTOANTIBODIES, AND ANTIBODY THERAPY CONTAINING HAMA MAY INTERFERE WITH THIS TEST RESULT. CORRELATION TO CLINICAL HISTORY AND PRESENTATION RECOMMENDED. 04/22/2024 1:00 PM RADIATION PROTECTION SPECIALIST us Francisco Barreto MD LABORATORY Final Result Performing Organization Address [facility] Co de Phone Number [facility] [address] [place] [address], [place] [phone] * INFLUENZA A & B (04/22/2024 12:10 PM RADIATION PROTECTION SPECIALIST) SPECIMEN TYPE NASOPHARYNGEAL SWAB 04/22/2024 1:27 PM RADIATION PROTECTION SPECIALIST [facility] INFLUENZA A NEGATIVE NEGATIVE 04/22/2024 1:47 PM RADIATION PROTECTION SPECIALIST [facility] INFLUENZA B NEGATIVE NEGATIVE 04/22/2024 1:47 PM RADIATION PROTECTION SPECIALIST [facility] NASOPHARYNGEAL SWAB / Unknown 04/22/2024 12:10 PM RADIATION PROTECTION SPECIALIST us Francisco Barreto MD MICROBIOLOGY - GENERAL ORDERABL ES Final Result Performing Organization Address [facility] de Phone Number [facility] [address] [place] [address], [place] [phone] * RESP SYNCYTIAL VIRUS (04/22/2024 12:10 PM RADIATION PROTECTION SPECIALIST) SPECIMEN TYPE NASOPHARYNGEAL SWAB 04/22/2024 1:26 PM RADIATION PROTECTION SPECIALIST [facility] RAPID RSV NEGATIVE NEGATIVE 04/22/2024 1:46 PM RADIATION PROTECTION SPECIALIST [facility] NASOPHARYNGEAL SWAB / Unknown 04/22/2024 12:10 PM RADIATION PROTECTION SPECIALIST us Francisco Barreto MD MICROBIOLOGY - GENERAL ORDERABL ES Final Result Performing Organization Address [facility] Co de Phone Number [facility] [address] [place] [address], from Last 3 Months Insurance MEDICARE GENERIC - COMMERCIAL Care Teams 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
--- OUTSIDE RECORDS SUMMARY | 2024-04-26 13:30 | XMS_ITS | Referral Summary ---
Author Organization [facility] [place] [address] Address [address] [place] [address] Care Team Providers Care House Mother Name Role Phone Sandro Kim MD Primary Care Provider [phone] Allergies Active Allergy Reactions Criticality Noted Date Comments Codeine Vomiting Low 10/19/2018 Lisinopril Cough Low 10/19/2018 Metronidazole Other (See comments) Low 10/19/2018 Terbinafine Hcl Other (See comments) Low 10/19/2018 Medications albuterol HFA (ProAir HFA) 90 mcg/actuation inhaler Inhale 04/07/2018 Active aspirin 81 mg enteric coated tablet 01/01/2015 Active levothyroxine (SYNTHROID) 50 mcg tablet Take 1 tablet (50 mcg total) by mouth daily 10/12/2022 Active triamterene-hyd roCHLOROthiazid e 37.5-25 mg per tablet Take 1 tablet/capsul e by mouth daily 09/24/2022 Active metoprolol XL (TOPROL-XL) 50 mg extended release tablet Take 1 tablet (50 mg total) by mouth daily 10/02/2022 Active cholecalciferol (VITAMIN D-3) 1,000 unit capsule Take 2 capsules (2,000 Units total) by mouth daily 01/01/2015 Active ezetimibe (ZETIA) 10 mg tablet TAKE 1 TABLET BY MOUTH DAILY 90 tablet 3 08/08/2023 Active Active Problems Problem Noted Date Diagnosed Date Other specified cardiac arrhythmias 11/30/2022 Hyperlipidemia 11/30/2022 Secondary hypertension 11/30/2022 Social History Tobacco Use Types Packs/Day Years Used Date Smoking Tobacco: Never Passive Smoke Exposure: Past Smokeless Tobacco: Never Tobacco Cessation:Counseling Given: Not Answered Comments Unknown Sex and Gender Information Value Date Recorded Sex Assigned at Not on file Legal Sex Female 9:33 PM VETERINARY MILK SPECIALIST Gender Identity Not on file Sexual Orientation Not on file Last Filed Vital Signs Vital Sign Reading Time Taken Comments Blood Pressure 126/72 01/15/2024 10:43 AM VETERINARY MILK SPECIALIST Pulse 60 01/15/2024 10:43 AM VETERINARY MILK SPECIALIST Temperature - - Respiratory Rate 16 01/15/2024 10:43 AM VETERINARY MILK SPECIALIST Oxygen Saturation 92% 11/30/2022 11:24 AM CDT Inhaled Oxygen Concentration - - Weight 47.6 kg (105 lb) 01/15/2024 10:43 AM VETERINARY MILK SPECIALIST Height 149.9 cm (4' 11 ) 01/15/2024 10:43 AM VETERINARY MILK SPECIALIST Body Mass Index 21.21 01/15/2024 10:43 AM VETERINARY MILK SPECIALIST Plan of Treatment Not on file Insurance MEDICARE COMMERCIAL GENERIC MEDICARE COMMERCIAL GENERIC Care Teams House Mother Relationship Specialty Start Date End Date Sandro Kim MD [address] [address] PCP - General Family Medicine 01/15/24
--- OUTSIDE RECORDS SUMMARY | 2024-04-26 13:30 | XMS_ITS | Clinical Summary ---
Author Organization [facility] [place] [address] Address [address] [place] [address] Care Team Providers Care Head Miller Name Role Phone Sandro Kim MD Primary Care Provider Allergies Active Allergy Reactions Criticality Noted Date [...] arrhythmias 11/30/2022 Hyperlipidemia 11/30/2022 Secondary hypertension 11/30/2022 Surgical History Surgery Date Site/Laterality Comments HYSTERECTOMY CHOLECYSTECTOMY THYROIDECTOMY, PARTIAL Medical History Medical History Date Comments Thyroid disease Hypertension Asthma Family History Medical History Relation Name Comments Arrhythmia Brother Hypertension Father Hypertension Mother Hypertension Sister Relation Name Status Comments Brother Alive Father Mother Sister Alive Social History Tobacco Use Types Packs/Day Years Used Date Smoking Tobacco: Never Passive Smoke Exposure: Past Smokeless Tobacco: Never Tobacco Cessation:Counseling Given: Not Answered Comments Unknown Sex and Gender Information Value Date Recorded Sex Assigned at Not on file Legal Sex Female 9:33 PM REFRIGERATING ENGINEER Gender Identity Not on file Sexual Orientation Not on file Obstetrics History Last Filed Vital Signs Vital Sign Reading Time Taken Comments Blood Pressure 126/72 01/15/2024 10:43 AM REFRIGERATING ENGINEER Pulse 60 01/15/2024 10:43 AM REFRIGERATING ENGINEER Temperature - - Respiratory Rate 16 01/15/2024 10:43 AM REFRIGERATING ENGINEER Oxygen Saturation 92% 11/30/2022 11:24 AM CDT Inhaled Oxygen Concentration - - Weight 47.6 kg (105 lb) 01/15/2024 10:43 AM REFRIGERATING ENGINEER Height 149.9 cm (4' 11 ) 01/15/2024 10:43 AM REFRIGERATING ENGINEER Body Mass Index 21.21 01/15/2024 10:43 AM REFRIGERATING ENGINEER Plan of Treatment Health Maintenance Due Date Last Done Comments Depression Screening 1936 Fall Risk Assessment 1936 Hepatitis B Screening 1954 Well Visit 65+ 2001 Zoster Vaccine (2 of 3) 12/16/2015 10/21/2015 DTaP/Tdap/Td Vaccine (3 - Td or Tdap) 10/11/2023 10/10/2013, 03/04/2013 Covid-19 Vaccine (3 - 2023-2 5 season) 2023 06/01/2020, 05/03/2020 Influenza Vaccine (#1) 2023 , 01/20/2019, 01/06/2017, Additional history exists Pneumococcal vaccine 65+ Completed 018, 01/06/2017, 03/04/2006 Insurance MEDICARE COMMERCIAL GENERIC MEDICARE COMMERCIAL GENERIC Care Teams Head Miller Relationship Specialty Start Date End Date Sandro Kim MD [address] [place] [address] PCP - General Family Medicine 01/15/24
[2024-04-26 13:46] VITALS: BP 149/90; PULSE 82; RESP 17; TEMP 36.8; O2SAT 95
--- NOTE | 2024-04-26 15:09 | ED.ABDPAIN ---
HPI - Abdominal Pain General Chief Complaint: Abdominal Pain Stated Complaint: sick x 1.5 weeks Time Seen by Provider: 04/26/24 15:10 Focused HPI: This is a 88 year old female that presents to the ER for nausea, generalized weakness. Reports she has been sick for a week. Reports decreased appetite. She went to the [place] in [place] on Saturday. Reports she was discharged and blood work, urine and viral panels. Reports she had a chest x-ray and CT scan of her abdomen. Reports she was given something for nausea and cough. Reports she has been having fevers. GENERAL: Elderly, well-nourished, and in no acute distress. HEAD: Normocephalic, atraumatic. CHEST: Clear to auscultation. ?No respiratory distress. HEART: Regular rate and rhythm.? NEURO: ?Alert and oriented x3. Patient screened in triage and initial orders placed.? ?Additional care and disposition to be based upon?diagnostic testing and treatment. Related Data Home Medications ?Medication ?Instructions ?Recorded ?Confirmed ?Last Taken ?Type aspirin 81 mg tablet 81 mg PO DAILY 11/17/19 10/07/23 Unknown History cholecalciferol (vitamin D3) 50 50 mcg PO DAILY 11/17/19 10/07/23 Unknown History mcg (2,000 unit) capsule ezetimibe 10 mg tablet 10 mg PO DAILY 11/17/19 10/07/23 Unknown History metoprolol succinate 50 mg 50 tablet PO DAILY 11/17/19 10/07/23 Unknown History tablet,extended release 24 hr vit C 250 mg-vit E 90 mg-zinc 40 2 tablet PO DAILY 11/17/19 10/07/23 Unknown History mg-copper 1 ti-mposva-mtvwga capsule (PreserVision AREDS-2) cetirizine 10 mg tablet (Zyrtec) 10 mg PO DAILY PRN 08/27/22 10/07/23 Unknown History Allergies Allergy/AdvReac Type Severity Reaction Status Date / Time metronidazole (From Flagyl) Allergy Intermediate Gastrointestinal Verified 04/26/24 18:39 Upset terbinafine (From Lamisil) Allergy Intermediate Gastrointestinal Verified 04/26/24 18:39 Upset codeine AdvReac Intermediate Nausea and Verified 04/26/24 18:39 Vomiting lisinopril AdvReac Intermediate Cough Verified 04/26/24 18:39 PMFSH Past Medical History Medical History Actinic keratosis Acute sinusitis Benign mole Biceps reflexes unequal Body mass index (BMI) less than 20 Cerumen impaction Chronic kidney disease Friction blister with infection High blood pressure Otitis media Pain and swelling of right upper extremity Persistent cough Rotator cuff tear, right Skin neoplasm Thyroid disease Surgical History Surgical History History of cholecystectomy 1971 History of thyroid surgery 1986 Family History Family History Father Dementia Hypertension Mother Hypertension Macular degeneration Sibling Atrial fibrillation Other Family history of malignant neoplasm of thyroid Social History Social History Smoking status: Never smoker Second hand tobacco smoke exposure: Yes Alcohol intake: never Substance use: never Substance use type: does not use Do You Feel Safe in your Home?: Yes Lack of Transportation: No Lack of Food: Never True Current Housing: I Have Housing Concerned About Future Housing: No Difficulty Paying Gas/Electric Bills: No Difficulty Paying for Meds: No Currently Unemployed: No Education: High School Diploma/GED Difficulty w/ Childcare or Family Care: No Living arrangements: with family 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/Education: 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 Gender identity (if verbalized by the patient): Female Course Vital Signs Vital signs: Vital Signs Temperature 98.2 F 04/26/24 13:46 Pulse Rate 82 04/26/24 13:46 Respiratory Rate 17 04/26/24 13:46 Blood Pressure 149/90 H 04/26/24 13:46 Pulse Oximetry 95 04/26/24 13:46 Oxygen Delivery Room Air 04/26/24 13:46 Temperature 97.7 F 04/26/24 15:17 Pulse Rate 82 04/26/24 15:17 Respiratory Rate 18 04/26/24 15:17 Blood Pressure 128/70 04/26/24 15:17 Pulse Oximetry 95 04/26/24 15:17 Oxygen Delivery Room Air 04/26/24 13:46 MDM - Abdominal Pain MDM Narrative Medical decision making narrative: Patient left after medical screening exam and chest x-ray, and before any further evaluation or management Imaging Data Radiologist's impression: ITS Impressions Chest X-Ray 04/26/24 16:49 IMPRESSION: No focal infiltrate or effusion. Discharge Plan Discharge Clinical Impression: Generalized weakness, Nausea Cough Qualifiers: Cough type: unspecified Qualified Code(s): R05.9 - Cough, unspecified Patient Disposition: Elopement After Seen by Prov Condition: Stable Instructions: Antibiotic Form Patient Language: Namibian Prescriptions: No Action azithromycin [Zithromax Z-Eron] 250 mg tablet See Rx Instructions .ROUTE .COMPLEX Qty: 6 0RF Rx Instructions: For 250 mg dose pack: take 500 mg today (day 1), then 250 mg for 4 days (days 2-5) prednisone 20 mg tablet 20 mg PO DAILY Qty: 5 0RF metoprolol succinate 50 mg tablet extended release 24 hr 50 tablet PO DAILY ezetimibe 10 mg tablet 10 mg PO DAILY aspirin 81 mg tablet 81 mg PO DAILY cholecalciferol (vitamin D3) 50 mcg (2,000 unit) capsule 50 mcg PO DAILY PreserVision AREDS-2 [id number] pg-[id number]-tp-mg capsule 2 tablet PO DAILY Rx Instructions: administer with meals cetirizine [Zyrtec] 10 mg tablet 10 mg PO DAILY PRN triamterene-hydrochlorothiazid 37.5-25 mg tablet See Rx Instructions .ROUTE .COMPLEX Qty: 90 3RF Dose Instruction: TAKE 1 TABLET BY MOUTH DAILY Rx Instructions: TAKE 1 TABLET BY MOUTH DAILY levothyroxine 50 mcg tablet See Rx Instructions .ROUTE .COMPLEX Qty: 90 1RF Dose Instruction: TAKE 1 TABLET BY MOUTH DAILY Rx Instructions: TAKE 1 TABLET BY MOUTH DAILY Follow-up/Referrals: Sandro Kim MD [Primary Care Provider] -
[2024-04-26 15:17] VITALS: BP 128/70; PULSE 82; RESP 18; TEMP 36.5; O2SAT 95
--- NOTE | 2024-04-26 17:08 | PC.NURSE ---
Pt declined to be seen due to wait time, pt states she cannot wait any longer and is going to the Urgent Care. Pt ambulated out w/ daughter in [place].
--- OUTSIDE RECORDS SUMMARY | 2024-04-26 17:14 | XMS_ITS | Clinical Summary ---
Author Organization [facility] Address [address] [place] [address] Phone Care Team Providers Care Manager Leasing Name Role Phone Sandro Kim MD Primary Care Provider [phone] Allergies Active Allergy Reactions Criticality Noted Date [...] Risk Completed 11/02/2017, 01/06/2017, 03/04/2006 Care Teams Manager Leasing Relationship Specialty Start Date End Date Sandro Kim MD [address] [place] [address] PCP - General Family Medicine 10/22/18
--- OUTSIDE RECORDS SUMMARY | 2024-04-26 17:14 | XMS_ITS | Clinical Summary ---
Author Organization [facility] [place] [address] Address [address] [place] [address] Care Team Providers Care Data Science And Iot Manager Name Role Phone Sandro Kim MD Primary Care Provider [phone] Allergies Active Allergy Reactions Criticality Noted Date [...] on file Legal Sex Female 9:33 PM VP MEDICAL Gender Identity Not on file Sexual Orientation Not on file Obstetrics History Last Filed Vital Signs Vital Sign Reading Time Taken Comments Blood Pressure 126/72 01/15/2024 10:43 AM VP MEDICAL Pulse 60 01/15/2024 10:43 AM VP MEDICAL Temperature - - Respiratory Rate 16 01/15/2024 10:43 AM VP MEDICAL Oxygen Saturation 92% 11/30/2022 11:24 AM CDT Inhaled Oxygen Concentration - - Weight 47.6 kg (105 lb) 01/15/2024 10:43 AM VP MEDICAL Height 149.9 cm (4' 11 ) 01/15/2024 10:43 AM VP MEDICAL Body Mass Index 21.21 01/15/2024 10:43 AM VP MEDICAL Plan of Treatment Health Maintenance Due Date [...] COMMERCIAL GENERIC MEDICARE COMMERCIAL GENERIC Care Teams Data Science And Iot Manager Relationship Specialty Start Date End Date Sandro Kim MD [address] [place] [address] PCP - General Family Medicine 01/15/24
--- OUTSIDE RECORDS SUMMARY | 2024-04-26 17:14 | XMS_ITS | Referral Summary ---
Author Organization [facility] [address] Address [address] [place] [address] Care Team Providers Care Negative Cleaner Name Role Phone Sandro Kim MD Primary Care Provider [phone] Allergies Active Allergy Reactions Criticality Noted Date [...] on file Legal Sex Female 9:33 PM INFORMATION TECHNOLOGY COORDINATOR Gender Identity Not on file Sexual Orientation Not on file Last Filed Vital Signs Vital Sign Reading Time Taken Comments Blood Pressure 126/72 01/15/2024 10:43 AM INFORMATION TECHNOLOGY COORDINATOR Pulse 60 01/15/2024 10:43 AM INFORMATION TECHNOLOGY COORDINATOR Temperature - - Respiratory Rate 16 01/15/2024 10:43 AM INFORMATION TECHNOLOGY COORDINATOR Oxygen Saturation 92% 11/30/2022 11:24 AM CDT Inhaled Oxygen Concentration - - Weight 47.6 kg (105 lb) 01/15/2024 10:43 AM INFORMATION TECHNOLOGY COORDINATOR Height 149.9 cm (4' 11 ) 01/15/2024 10:43 AM INFORMATION TECHNOLOGY COORDINATOR Body Mass Index 21.21 01/15/2024 10:43 AM INFORMATION TECHNOLOGY COORDINATOR Plan of Treatment Not on file Insurance MEDICARE COMMERCIAL GENERIC MEDICARE COMMERCIAL GENERIC Care Teams Negative Cleaner Relationship Specialty Start Date End Date Sandro Kim MD [address] [place] [address] PCP - General Family Medicine 01/15/24
--- OUTSIDE RECORDS SUMMARY | 2024-04-26 17:14 | XMS_ITS | Clinical Summary ---
Author Organization [facility] Address [address] [place] [address] Care Team Providers Care Guest Relations Agent Name Role Phone Sandro Kim MD Primary Care Provider [phone] Allergies Active Allergy Reactions Criticality Noted Date [...] Department Care Team Description 04/22/2024 12:52 PM DIRECTOR ERP - 04/22/2024 4:30 PM DIRECTOR ERP Emergency [facility] Emergency Room [address] [place] [address] Francisco Barreto MD Cough Discharge Disposition: Home or Self Care (Routine Discharge) 04/22/2024 Travel from Last 3 Months Social History Tobacco Use Types Packs/Day Years Used Date Smoking Tobacco: Never Assessed Comments Unknown Sex and Gender Information Value Date Recorded Sex Assigned at Female 04/22/2024 12:49 PM DIRECTOR ERP Legal Sex Female 12:38 PM DIRECTOR ERP Gender Identity Not on file Sexual Orientation Not on file Last Filed Vital Signs Vital Sign Reading Time Taken Comments Blood Pressure 140/82 04/22/2024 4:36 PM DIRECTOR ERP Pulse 65 04/22/2024 4:36 PM DIRECTOR ERP Temperature 36.6 C (97.8 F) 04/22/2024 12:58 PM DIRECTOR ERP Respiratory Rate 16 04/22/2024 4:36 PM DIRECTOR ERP Oxygen Saturation 98% 04/22/2024 4:36 PM DIRECTOR ERP Inhaled Oxygen Concentration - - Weight 45.4 kg (100 lb) 04/22/2024 12:58 PM DIRECTOR ERP Height 152.4 cm (5') 04/22/2024 12:58 PM DIRECTOR ERP Body Mass Index 19.53 04/22/2024 12:58 PM DIRECTOR ERP Plan of Treatment Health Maintenance Due Date [...] ABD+PEL W CON STAT 04/22/2024 3:25 PM DIRECTOR ERP URINALYSIS MICRO ONLY STAT 04/22/2024 2:35 PM DIRECTOR ERP HC URINALYSIS AUTO W/O MICRO STAT 04/22/2024 2:35 PM DIRECTOR ERP XR CHEST PORTABLE STAT 04/22/2024 1:2 5 PM DIRECTOR ERP STREP A RAPID STAT 04/22/2024 1:25 PM DIRECTOR ERP ECG 12-LEAD STAT 04/22/2024 1:20 PM DIRECTOR ERP CORONAVIRUS (COVID 19) STAT 1:10 PM DIRECTOR ERP PRO-BRAIN NATRIURETIC PEPTIDE STAT 04/22/2024 1:00 PM DIRECTOR ERP TROPONIN, QUANT STAT 04/22/2024 1:00 PM DIRECTOR ERP COMPREHENSIVE METABOLIC PANEL STAT 04/22/2024 1:00 PM DIRECTOR ERP CBC W/DIFF AUTOMATED STAT 04/22/2024 1:00 PM DIRECTOR ERP INFLUENZA A & B STAT 04/22/2024 12:10 PM DIRECTOR ERP RESP SYNCYTIAL VIRUS STAT 04/22/2024 12:10 PM DIRECTOR ERP from Last 3 Months Results * CT ABD+PEL W CON (04/22/2024 3:25 PM DIRECTOR ERP) Anatomical Region Laterality Modality Abdomen Computed Tomogra phy 04/22/2024 3:32 PM DIRECTOR ERP Impressions 04/22/2024 3:58 PM DIRECTOR ERP IMPRESSION: SMALL HIATAL HERNIA. SOLITARY SUBCENTIMETER PROBABLE INTRAHEPATIC AND BILATERAL RENAL CORTICAL CYSTS, ALTHOUGH TOO SMALL TO CHARACTERIZE. 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 Referred By: Interpreted By: Elijah Pretty MD, 04/22/2024 3:32 PM Narrative 04/22/2024 3:58 PM DIRECTOR ERP [facility] [address] [facility] [place] [address] EXAM: CT ABD+PEL W CON INDICATION: Mid [...] Procedure Note Elijah Pretty MD - 04/22/2024 [facility] [address] [place] [address] EXAM: CT ABD+PEL W CON INDICATION: Mid [...] Result * (ABNORMAL) URINALYSIS (04/22/2024 2:35 PM DIRECTOR ERP) COLOR (U) YELLOW 04/22/2024 2:48 PM DIRECTOR ERP [facility] TRANSPARENCY HAZY 04/22/2024 2:[address] [facility] SPECIFIC GRAVITY (U) 1.010 1.000 - 1.030 04/22/2024 2:[address] [facility] U PH 6.0 5.0 - 9.0 04/22/2024 2:[address] [facility] LEUKOCYTES (U) NEGATIVE NEGATIVE 04/22/2024 2:[address] [facility] NITRITES NEGATIVE NEGATIVE 04/22/2024 2:48 PM [facility] PROTEIN RANDOM (U) 1+(A) NEGATIVE 04/22/2024 2:[address] [facility] GLUCOSE (U) NEGATIVE NEGATIVE 04/22/2024 2:[address] [facility] KETONES MG/DL (U) NEGATIVE NEGATIVE 04/22/2024 2:48 PM [facility] BILIRUBIN (U) NEGATIVE NEGATIVE 04/22/2024 2:[address] [facility] BLOOD (U) TRACE(A) NEGATIVE 04/22/2024 2:48 PM [facility] URINE, STRAIGHT CATH 04/22/2024 2:35 PM DIRECTOR ERP Francisco Barreto MD URINE ORDERABLES Final Result [facility] [address] [place] [address], * URINALYSIS MICRO ONLY (04/22/2024 2:35 PM DIRECTOR ERP) WBC/HPF NONE SEEN 0 - 5 /HPF 04/22/2024 2:[address] [facility] RBC/HPF 0-5 0 - 5 /HPF 04/22/2024 2:[address] [facility] EPI/HPF FEW /HPF 04/22/2024 2:[address] [facility] 04/22/2024 2:35 PM DIRECTOR ERP Francisco Barreto MD URINE ORDERABLES Final Result [facility] [address] [place] [id number], * XR CHEST PORTABLE (04/22/2024 1:25 PM DIRECTOR ERP) Anatomical Region Laterality Modality Chest Radiographic Tasia ging 04/22/2024 1:36 PM DIRECTOR ERP Impressions 04/22/2024 1:37 PM DIRECTOR ERP IMPRESSION: NO ACUTE CHEST DISEASE. Referred By: Interpreted By: Elijah Pretty MD, 04/22/2024 1:36 PM Narrative 04/22/2024 1:37 PM DIRECTOR ERP [facility] [address] [facility] [place] [address] EXAM: XR CHEST PORTABLE INDICATION: Cough. TECHNIQUE: AP upright view of the chest obtained. COMPARISON EXAM: None FINDINGS: Mild hyperinflation with pleural-parenchymal scarring. No acute consolidation or effusion. Normal heart size and pulmonary vascular caliber. Old healed right-sided rib fracture. No acute skeletal abnormality. Procedure Note Elijah Pretty MD - 04/22/2024 [facility] [address] [facility] [place] [address] EXAM: XR CHEST PORTABLE INDICATION: Cough. TECHNIQUE: [...] * STREP A RAPID (04/22/2024 1:25 PM DIRECTOR ERP) RAPID STREP TEST NEGATIVE NEGATIVE 04/22/2024 1:[address] [facility] 04/22/2024 1:25 PM DIRECTOR ERP us Francisco Barreto MD MICROBIOLOGY - GENERAL ORDERABL ES Final Result 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 Estate Loan Processor: : 1935 Requested By: FRANCISCO BARRETO Order Number: [id number] Reading MD: Mateo Flores Measurements Intervals [place] Rate: 61 P: 88 PA: 165 QRS: 60 QRSD: 89 T: 78 QT: 402 QTc: 407 Interpretive Statements SINUS RHYTHM WITH FREQUENT SUPRAVENTRICULAR PREMATURE COMPLEXES IN A BIGEMINAL PATTERN ABNORMAL RHYTHM ECG No previous ECG available for comparison CTOR ERP Procedure Note Mateo Flores MD - 04/22/2024 [facility] Test Date: 2024-04-22 Pat Name: [facility] Department: Room: EXAM 303 Gender: Female Real Estate Loan Processor: : 1935 Requested By: FRANCISCO Conley Number: [id number] Reading MD: Mateo Flores Measurements Intervals [place] Rate: 61 P: 88 PA: 165 QRS: 60 QRSD: 89 T: 78 QT: 402 QTc: 407 Interpretive Statements SINUS RHYTHM WITH FREQUENT SUPRAVENTRICULAR PREMATURE COMPLEXES IN A BIGEMINAL PATTERN ABNORMAL RHYTHM ECG No previous ECG available for comparison CTOR ERP Francisco Barreto MD ECG ORDERABLES Final Result Performing Organization Address [facility]/ZIP Co de Phone Number [facility] RAD * CORONAVIRUS (COVID-19) MOLECULAR (04/22/2024 1:10 PM DIRECTOR ERP) Pathologist [facility] CORONAVIRUS SARS COV 2 RNA NEGATIVE NEGATIVE 04/22/2024 1:[address] [facility] Comment: NEGATIVE RESULTS DO NOT RULE [...] SARS-COV-2. SPECIMEN TYPE NASAL 04/22/2024 1:[address] [facility] NASOPHARYNGEAL SWAB / Unknown 04/22/2024 1:10 PM DIRECTOR ERP Francisco Barreto MD MICROBIOLOGY - GENERAL ORDERABL ES Final Result Performing Organization Address [facility]/ZIP Co de Phone Number [facility] [address] [place] [address], * (ABNORMAL) PRO-BRAIN NATRIURETIC PEPTIDE (04/22/2024 1:00 PM DIRECTOR ERP) Pathologist [facility] PRO-B TYPE NATRIURETIC PEPTIDE 891(H) <450 PG/ML 04/22/2024 1:[address] [facility] Comment: CUT POINTS ESTABLISHED BY INTERNATIONAL [...] 72% FOR ACUTE CHF. 04/22/2024 1:00 PM DIRECTOR ERP us Francisco Barreto MD LABORATORY Final Result [facility] [address] [place] [address], * (ABNORMAL) COMPREHENSIVE METABOLIC PANEL (04/22/2024 1:00 PM DIRECTOR ERP) GLUCOSE 117(H) 70 - 99 MG/DL 04/22/2024 1:50 PM [facility] BUN 19(H) 7 - 18 MG/DL 04/22/2024 1:50 PM [facility] CREATININE S/P/B 1.17(H) 0.55 - 1.02 MG/DL 04/22/2024 1:50 PM [facility] SODIUM S/P/B 132(L) 136 - 145 MMOL/L 04/22/2024 1:50 PM [facility] POTASSIUM S/P/B 3.8 3.5 - 5.1 MMOL/L 04/22/2024 1:50 PM [facility] CHLORIDE S/P/B 93(L) 100 - 108 MMOL/L 04/22/2024 1:50 PM [facility] CO2 31.6 21 - 32 MMOL/L 04/22/2024 1:50 PM [facility] CALCIUM S/P/B 9.0 8.5 - 10.1 MG/DL 04/22/2024 1:50 PM [facility] BILIRUBIN TOTAL S/P/B 0.4 0.2 - 1.2 MG/DL 04/22/2024 1:50 PM [facility] TOTAL PROTEIN S/P/B 7.1 6.4 - 8.2 G/DL 04/22/2024 1:50 PM [facility] ALBUMIN S/P/B 4.0 3.4 - 5.0 G/DL 04/22/2024 1:50 PM [facility] AST 38(H) 15 - 37 U/L 04/22/2024 1:50 PM [facility] ALT 43 14 - 55 U/L 04/22/2024 1:50 PM [facility] ALKALINE PHOSPHATASE S/P/B 82 50 - 136 U/L 04/22/2024 1:50 PM [facility] ANION GAP 7.4 5 - 15 MMOL/L 04/22/2024 1:50 PM [facility] BUN CREATININE RATIO 16.2 6 - 26 04/22/2024 1:50 PM [facility] A/G RATIO 1.3 1.0 - 2.0 RATIO 04/22/2024 1:50 PM [facility] GFR ESTIMATE 45(L) >90 ML/MIN/1.7 3 M2 04/22/2024 1:50 PM [facility] Comment: NOTE: eGFR is not calculated for patients <18 years of age. This is an estimated GFR calculation using the new CKD EPI creatinine equation without race and so does not require a correction factor for race. This estimated GFR should not be used for calculating drug doses. 04/22/2024 1:00 PM DIRECTOR ERP Francisco Barreto MD LABORATORY Final Result [facility] [address] [place] [address], * (ABNORMAL) CBC W/DIFF AUTOMATED (04/22/2024 1:00 PM DIRECTOR ERP) WBC 4.92 4.4 - 11.0 x10'3/uL 04/22/2024 1:[address] [facility] RBC 4.05(L) 4.50 - 5.10 x10'6/uL 04/22/2024 1:27 PM [facility] HGB 12.5 12.3 - 15.3 G/DL 04/22/2024 1:27 PM [facility] HCT 36.9 35.9 - 44.6 % 04/22/2024 1:27 PM [facility] MCV 91.1 80.0 - 96.0 FL 04/22/2024 1:27 PM [facility] MCH 30.9 25.3 - 30.9 PG 04/22/2024 1:27 PM [facility] MCHC 33.9 31.0 - 34.1 G/DL 04/22/2024 1:27 PM [facility] RDW 12.3(L) 12.4 - 15.1 % 04/22/2024 1:27 PM [facility] PLT 218 151 - 353 x10'3/uL 04/22/2024 1:27 PM [facility] MPV 9.2(L) 9.6 - 12.0 FL 04/22/2024 1:27 PM [facility] RBC MORPHOLOGY NORMAL 04/22/2024 1:27 PM [facility] PLT MORPH. NORMAL 04/22/2024 1:27 PM [facility] WBC MORPHOLOGY NORMAL 04/22/2024 1:27 PM [facility] LYMPHOCYTES % 31.7 15.8 - 45.0 % 04/22/2024 1:27 PM [facility] NEUTROPHILS % 59.0 42.1 - 71.9 % 04/22/2024 1:27 PM [facility] MONOCYTES % 8.5 5.7 - 12.5 % 04/22/2024 1:27 PM [facility] EOSINOPHILS 0.0 0.0 - 5.6 % 04/22/2024 1:27 PM [facility] BASOPHILS 0.4 0.0 - 1.3 % 04/22/2024 1:27 PM [facility] ABS. NEUTROPHILS 2.90 1.40 - 6.00 x10'3/uL 04/22/2024 1:27 PM [facility] IMMATURE GRANS % 0.4 0.0 - 0.5 % 04/22/2024 1:27 PM [facility] ABS. LYMPHOCYTES 1.56 0.80 - 4.70 x10'3/uL 04/22/2024 1:27 PM [facility] 04/22/2024 1:00 PM DIRECTOR ERP us Francisco Barreto MD LABORATORY Final Result [facility] [address] [place] [address], * TROPONIN, QUANT (04/22/2024 1:00 PM DIRECTOR ERP) Pathologist [facility] TROPONIN I HIGH SENSITIVITY 17 0 - 50 ng/L 04/22/2024 1:[address] [facility] Comment: HIGH DOSES OF BIOTIN, TROPONIN-SPECIFIC AUTOANTIBODIES, AND ANTIBODY THERAPY CONTAINING HAMA MAY INTERFERE WITH THIS TEST RESULT. CORRELATION TO CLINICAL HISTORY AND PRESENTATION RECOMMENDED. 04/22/2024 1:00 PM DIRECTOR ERP us Francisco Barreto MD LABORATORY Final Result Performing Organization Address [facility] [[email or web address]] Co de Phone Number [facility] [address] [place] [address], [place] [phone] * INFLUENZA A & B (04/22/2024 12:10 PM DIRECTOR ERP) SPECIMEN TYPE NASOPHARYNGEAL SWAB 04/22/2024 1:[address] [facility] INFLUENZA A NEGATIVE NEGATIVE 04/22/2024 1:[address] [facility] INFLUENZA B NEGATIVE NEGATIVE 04/22/2024 1:[address] [facility] NASOPHARYNGEAL SWAB / Unknown 04/22/2024 12:10 PM DIRECTOR ERP us Francisco Barreto MD MICROBIOLOGY - GENERAL ORDERABL ES Final Result Performing Organization Address [facility] de Phone Number [facility] [address] [place] [address], [place] [phone] * RESP SYNCYTIAL VIRUS (04/22/2024 12:10 PM DIRECTOR ERP) SPECIMEN TYPE NASOPHARYNGEAL SWAB 04/22/2024 1:[address] [facility] RAPID RSV NEGATIVE NEGATIVE 04/22/2024 1:[address] [facility] NASOPHARYNGEAL SWAB / Unknown 04/22/2024 12:10 PM DIRECTOR ERP us Francisco Barreto MD MICROBIOLOGY - GENERAL ORDERABL ES Final Result Performing Organization Address [facility] [[email or web address]] Co de Phone Number [facility] [address] [place] [address], from Last 3 Months Insurance MEDICARE GENERIC - COMMERCIAL Care Teams Guest Relations Agent Relationship Specialty Start Date End Date Sandro Kim MD [address] [place] [address] PCP - General FAMILY PRACTICE 04/22/24
--- OUTSIDE RECORDS SUMMARY | 2024-04-26 17:16 | XMS_ITS | Continuity of Care Document ---
Author Organization [facility] Address [address] [place] [address] [place] [address] Phone Care Team Providers Care Sales Office Manager Name Role Phone Jocelyn Kessler Unavailable Unavailable Procedures Procedure Date Office/outpatient Visit, Est Post-op Follow-up Visit Post-op Follow-up Visit Post-op Follow-up Visit Remove Cataract, Insert Lens Eye Exam & Treatment IOLMaster-Professional Advance Directives Directive Yes / No Effective Date File Name No Information Encounters Encounter Description Practice Location Reason(s) For Visit Diagnoses Date Provider Providers Copied on Encounter Office/outpat ient Visit, Est [facility], [address] [place] [address] [address], [place], [place], [id number], tel:[phone] [facility] No Information 7-[address] Car[address] , [address], [place], [address], [place]. tel:[phone] [facility], [address] [place] [address] [address], [place], [place], [id number], [place] tel:[phone] [facility] No Information [address] , [address], [place], [address], [place]. tel:[phone] [facility], [address] [place] [address] [address], [place], [place], [id number], tel:[phone] [facility] No Information May-1 1-200 7 Victoria Banks. [address] [facility] , [address], [place], [place], [facility], . tel:[phone] [facility], [address] [place] [address] [address], [place], [place], [id number], tel:[phone] [facility] No Information May-0 3-200 7 [address] Pru[address]. [address] [facility] , [address], [place], [place], [facility], . tel:[phone] [facility], [address] [place] [address] [address], [place], [place], [id number], tel:[phone] [facility] No Information May-0 2-200 7 Victoria Banks. [address] [facility] , [address], [place], [place], [facility], [place]. tel:[phone] [facility], [address] [place] [address] [address], [place], [place], [id number], tel:[phone] [facility] No Information Apr-2 0-200 7 Victoria Banks. [address] [facility] , [address], [place], [place], [facility], [place]. tel:[phone] Referring Provider: Jocelyn Gonzalez [address] [facility] [address], [place], [place], [facility]. tel:[phone] Family History Family Member Type Diagnosis Age At Onset No Information Payers Payer name Insurance type Covered constitution party ID Jamiea janinamiguel(s) [place] [id number] Social History Type Description Quantity Date Captured [...]
== END 2024-04-26 17:54 | disposition left against medical advice (07) ==
LOC: ANHED 17:12
PROVIDERS: Emergency Provider Physician Assistant; PCP Family Medicine
DX: R53.1 Weakness (principal); R11.0 Nausea; R05.9 Cough, unspecified; I12.9 Hypertensive chronic kidney disease with stage 1 through stage 4 chronic kidney disease, or unspecified chronic kidney disease; N18.9 Chronic kidney disease, unspecified; Z85.828 Personal history of other malignant neoplasm of skin; E07.9 Disorder of thyroid, unspecified; Z90.49 Acquired absence of other specified parts of digestive tract; Z79.82 Long term (current) use of aspirin; Z79.899 Other long term (current) drug therapy
CPT/HCPCS: 71046; 99283

== ENCOUNTER 2024-04-26 17:30 | Emergency (ER) | payer MEDICARE, SELFPAY ==
--- OUTSIDE RECORDS SUMMARY | 2024-04-26 17:35 | XMS_ITS | Continuity of Care Document ---
Author Organization [facility] Address [address] [place] [address] [place] [address] Phone Care Team Providers Care Senior Lead Java Developer Name Role Phone Jocelyn Kessler Unavailable Unavailable Procedures Procedure Date Office/outpatient Visit, Est Post-op Follow-up Visit Post-op Follow-up Visit Post-op Follow-up Visit Remove Cataract, Insert Lens Eye Exam & Treatment I[facility]-Professional Advance Directives Directive Yes / No Effective Date File Name No Information Encounters Encounter Description Practice Location Reason(s) For Visit Diagnoses Date Provider Providers Copied on Encounter Office/outpat ient Visit, Est [facility], [address] [place] [address] [address], [place], [place], [id number], tel:[phone] SEC [facility] No Information 7-200 7 [address] , [address], [place], [address], [place]. tel:[phone] [facility], [address] [place] [address] [address], [place], [place], [id number], [place] tel:[phone] [facility] No Information [address] , [address], [place], [address], [place]. tel:[phone] [facility], [address] [place] [address] [address], [place], [place], [id number], tel:[phone] [facility] No Information May-1 1-200 7 [address]. [address] [facility] , [address], [place], [place], [facility], . tel:[phone] [facility], [address] [place] [address] [address], [place], [place], [id number], tel:[phone] [facility] No Information May-0 3-200 7 [address]ru[address] [facility] , [address], [place], [place], [facility], . tel:[phone] [facility], [address] [place] [address] [address], [place], [place], [id number], tel:[phone] [facility] No Information May-0 2-200 7 Victoria Banks. [address] [facility] , [address], [place], [place], [facility], [place]. tel:[phone] [facility], [address] [place] [address] [address], [place], [place], [id number], tel:[phone] [facility] No Information Apr-2 0-200 7 [address] Banks. [address] [facility] , [address], [place], [place], [facility], [place]. tel:[phone] Referring Provider: Jocelyn Gonzalez [address] [facility] [address], [place], [place], [facility]. tel:[phone] Family History Family Member Type Diagnosis Age At Onset No Information Payers Payer name Insurance type Covered democrat ID Jamiea janinamigeul(s) [place] [id number] Social History Type Description Quantity Date Captured [...]
--- OUTSIDE RECORDS SUMMARY | 2024-04-26 17:35 | XMS_ITS | Clinical Summary ---
Author Organization [facility] Address [address] [place] [address] Phone Care Team Providers Care Cylinder Devalver Name Role Phone Sandro Kim MD Primary Care Provider [phone] Allergies Active Allergy Reactions Criticality Noted Date [...] Risk Completed 11/02/2017, 01/06/2017, 03/04/2006 Care Teams Cylinder Devalver Relationship Specialty Start Date End Date Sandro Kim MD [address] [place] [address] PCP - General Family Medicine 10/22/18
--- OUTSIDE RECORDS SUMMARY | 2024-04-26 17:35 | XMS_ITS | Clinical Summary ---
Author Organization [facility] Address [address] [place] [address] Care Team Providers Care Journal Clerk Name Role Phone Sandro Kim MD Primary Care Provider [phone] Allergies Active Allergy Reactions Criticality Noted Date [...] Department Care Team Description 04/22/2024 12:52 PM MEDICAL OFFICE TECHNICIAN - 04/22/2024 4:30 PM MEDICAL OFFICE TECHNICIAN Emergency [facility] Emergency Room [address] [place] [address] Francisco Barreto MD Cough Discharge Disposition: Home or Self Care (Routine Discharge) 04/22/2024 Travel from Last 3 Months Social History Tobacco Use Types Packs/Day Years Used Date Smoking Tobacco: Never Assessed Comments Unknown Sex and Gender Information Value Date Recorded Sex Assigned at Female 04/22/2024 12:49 PM MEDICAL OFFICE TECHNICIAN Legal Sex Female 12:38 PM MEDICAL OFFICE TECHNICIAN Gender Identity Not on file Sexual Orientation Not on file Last Filed Vital Signs Vital Sign Reading Time Taken Comments Blood Pressure 140/82 04/22/2024 4:36 PM MEDICAL OFFICE TECHNICIAN Pulse 65 04/22/2024 4:36 PM MEDICAL OFFICE TECHNICIAN Temperature 36.6 C (97.8 F) 04/22/2024 12:58 PM MEDICAL OFFICE TECHNICIAN Respiratory Rate 16 04/22/2024 4:36 PM MEDICAL OFFICE TECHNICIAN Oxygen Saturation 98% 04/22/2024 4:36 PM MEDICAL OFFICE TECHNICIAN Inhaled Oxygen Concentration - - Weight 45.4 kg (100 lb) 04/22/2024 12:58 PM MEDICAL OFFICE TECHNICIAN Height 152.4 cm (5') 04/22/2024 12:58 PM MEDICAL OFFICE TECHNICIAN Body Mass Index 19.53 04/22/2024 12:58 PM MEDICAL OFFICE TECHNICIAN Plan of Treatment Health Maintenance Due Date [...] ABD+PEL W CON STAT 04/22/2024 3:25 PM MEDICAL OFFICE TECHNICIAN URINALYSIS MICRO ONLY STAT 04/22/2024 2:35 PM MEDICAL OFFICE TECHNICIAN HC URINALYSIS AUTO W/O MICRO STAT 04/22/2024 2:35 PM MEDICAL OFFICE TECHNICIAN XR CHEST PORTABLE STAT 04/22/2024 1:2 5 PM MEDICAL OFFICE TECHNICIAN STREP A RAPID STAT 04/22/2024 1:25 PM MEDICAL OFFICE TECHNICIAN ECG 12-LEAD STAT 04/22/2024 1:20 PM MEDICAL OFFICE TECHNICIAN CORONAVIRUS (COVID 19) STAT 1:10 PM MEDICAL OFFICE TECHNICIAN PRO-BRAIN NATRIURETIC PEPTIDE STAT 04/22/2024 1:00 PM MEDICAL OFFICE TECHNICIAN TROPONIN, QUANT STAT 04/22/2024 1:00 PM MEDICAL OFFICE TECHNICIAN COMPREHENSIVE METABOLIC PANEL STAT 04/22/2024 1:00 PM MEDICAL OFFICE TECHNICIAN CBC W/DIFF AUTOMATED STAT 04/22/2024 1:00 PM MEDICAL OFFICE TECHNICIAN INFLUENZA A & B STAT 04/22/2024 12:10 PM MEDICAL OFFICE TECHNICIAN RESP SYNCYTIAL VIRUS STAT 04/22/2024 12:10 PM MEDICAL OFFICE TECHNICIAN from Last 3 Months Results * CT ABD+PEL W CON (04/22/2024 3:25 PM MEDICAL OFFICE TECHNICIAN) Anatomical Region Laterality Modality Abdomen Computed Tomogra phy 04/22/2024 3:32 PM MEDICAL OFFICE TECHNICIAN Impressions 04/22/2024 3:58 PM MEDICAL OFFICE TECHNICIAN IMPRESSION: SMALL HIATAL HERNIA. SOLITARY SUBCENTIMETER PROBABLE INTRAHEPATIC AND BILATERAL RENAL CORTICAL CYSTS, ALTHOUGH TOO SMALL TO CHARACTERIZE. 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 Referred By: Interpreted By: Elijah Pretty MD, 04/22/2024 3:32 PM Narrative 04/22/2024 3:58 PM MEDICAL OFFICE TECHNICIAN [facility] [address] [place] [address] EXAM: CT ABD+PEL W CON INDICATION: Mid [...] Procedure Note Elijah Pretty MD - 04/22/2024 [facility] [address] [place] [address] EXAM: CT ABD+PEL W CON INDICATION: Mid [...] Result * (ABNORMAL) URINALYSIS (04/22/2024 2:35 PM MEDICAL OFFICE TECHNICIAN) COLOR (U) YELLOW 04/22/2024 2:48 PM MEDICAL OFFICE TECHNICIAN [facility] () [facility] TRANSPARENCY HAZY 04/22/2024 2:48 PM MEDICAL OFFICE TECHNICIAN [facility] SPECIFIC GRAVITY (U) 1.010 1.000 - 1.030 04/22/2024 2:48 PM MEDICAL OFFICE TECHNICIAN [facility] U PH 6.0 5.0 - 9.0 04/22/2024 2:48 PM MEDICAL OFFICE TECHNICIAN [facility] LEUKOCYTES (U) NEGATIVE NEGATIVE 04/22/2024 2:48 PM MEDICAL OFFICE TECHNICIAN [facility] NITRITES NEGATIVE NEGATIVE 04/22/2024 2:48 PM [facility] PROTEIN RANDOM (U) 1+(A) NEGATIVE 04/22/2024 2:48 PM MEDICAL OFFICE TECHNICIAN [facility] GLUCOSE (U) NEGATIVE NEGATIVE 04/22/2024 2:48 PM MEDICAL OFFICE TECHNICIAN [facility] KETONES MG/DL (U) NEGATIVE NEGATIVE 04/22/2024 2:48 PM [facility] BILIRUBIN (U) NEGATIVE NEGATIVE 04/22/2024 2:48 PM MEDICAL OFFICE TECHNICIAN [facility] BLOOD (U) TRACE(A) NEGATIVE 04/22/2024 2:48 PM [facility] URINE, STRAIGHT CATH 04/22/2024 2:35 PM MEDICAL OFFICE TECHNICIAN Francisco Barreto MD URINE ORDERABLES Final Result [facility] [address] [place] [address], * URINALYSIS MICRO ONLY (04/22/2024 2:35 PM MEDICAL OFFICE TECHNICIAN) WBC/HPF NONE SEEN 0 - 5 /HPF 04/22/2024 2:48 PM MEDICAL OFFICE TECHNICIAN [facility] RBC/HPF 0-5 0 - 5 /HPF 04/22/2024 2:48 PM MEDICAL OFFICE TECHNICIAN [facility] EPI/HPF FEW /HPF 04/22/2024 2:48 PM MEDICAL OFFICE TECHNICIAN [facility] 04/22/2024 2:35 PM MEDICAL OFFICE TECHNICIAN Francisco Barreto MD URINE ORDERABLES Final Result [facility] [address] [place] [id number], * XR CHEST PORTABLE (04/22/2024 1:25 PM MEDICAL OFFICE TECHNICIAN) Anatomical Region Laterality Modality Chest Radiographic Tasia ging 04/22/2024 1:36 PM MEDICAL OFFICE TECHNICIAN Impressions 04/22/2024 1:37 PM MEDICAL OFFICE TECHNICIAN IMPRESSION: NO ACUTE CHEST DISEASE. Referred By: Interpreted By: Elijah Pretty MD, 04/22/2024 1:36 PM Narrative 04/22/2024 1:37 PM MEDICAL OFFICE TECHNICIAN [facility] [address] [place] [address] EXAM: XR CHEST PORTABLE INDICATION: Cough. TECHNIQUE: AP upright view of the chest obtained. COMPARISON EXAM: None FINDINGS: Mild hyperinflation with pleural-parenchymal scarring. No acute consolidation or effusion. Normal heart size and pulmonary vascular caliber. Old healed right-sided rib fracture. No acute skeletal abnormality. Procedure Note Elijah Pretty MD - 04/22/2024 [facility] [address] [place] [address] EXAM: XR CHEST PORTABLE INDICATION: Cough. TECHNIQUE: [...] * STREP A RAPID (04/22/2024 1:25 PM MEDICAL OFFICE TECHNICIAN) RAPID STREP TEST NEGATIVE NEGATIVE 04/22/2024 1:38 PM MEDICAL OFFICE TECHNICIAN [facility] 04/22/2024 1:25 PM MEDICAL OFFICE TECHNICIAN us Francisco Barreto MD MICROBIOLOGY - GENERAL ORDERABL ES Final Result [facility] [address] [place] [address], * ECG 12 lead (04/22/2024 1:20 PM MEDICAL OFFICE TECHNICIAN) 04/22/2024 1:20 PM MEDICAL OFFICE TECHNICIAN Narrative [facility] RAD - 04/22/2024 5:15 PM MEDICAL OFFICE TECHNICIAN [facility] Test Date: 2024-04-22 Pat Name: [facility] Department: Room: EXAM 303 Gender: Female Rn Hedis: : 1935 Requested By: FRANCISCO BARRETO Order Number: [id number] Reading MD: Mateo Flores Measurements Intervals [place] Rate: 61 P: 88 NE: 165 QRS: 60 QRSD: 89 T: 78 QT: 402 QTc: 407 Interpretive Statements SINUS RHYTHM WITH FREQUENT SUPRAVENTRICULAR PREMATURE COMPLEXES IN A BIGEMINAL PATTERN ABNORMAL RHYTHM ECG No previous ECG available for comparison CAL OFFICE TECHNICIAN Procedure Note Mateo Flores MD - 04/22/2024 [facility] Test Date: 2024-04-22 Pat Name: [facility] Department: Room: EXAM 303 Gender: Female Rn Hedis: : 1935 Requested By: FRANCISCO Conley Number: [id number] Reading MD: Mateo Flores Measurements Intervals [place] Rate: 61 P: 88 NE: 165 QRS: 60 QRSD: 89 T: 78 QT: 402 QTc: 407 Interpretive Statements SINUS RHYTHM WITH FREQUENT SUPRAVENTRICULAR PREMATURE COMPLEXES IN A BIGEMINAL PATTERN ABNORMAL RHYTHM ECG No previous ECG available for comparison CAL OFFICE TECHNICIAN Francisco Barreto MD ECG ORDERABLES Final Result Performing Organization Address [facility]/ZIP Co de Phone Number [facility] * CORONAVIRUS (COVID-19) MOLECULAR (04/22/2024 1:10 PM MEDICAL OFFICE TECHNICIAN) Pathologist [facility] CORONAVIRUS SARS COV 2 RNA NEGATIVE NEGATIVE 04/22/2024 1:31 PM MEDICAL OFFICE TECHNICIAN [facility] Comment: NEGATIVE RESULTS DO [...] SARS-COV-2. SPECIMEN TYPE NASAL 04/22/2024 1:26 PM MEDICAL OFFICE TECHNICIAN [facility] NASOPHARYNGEAL SWAB / Unknown 04/22/2024 1:10 PM MEDICAL OFFICE TECHNICIAN Francisco Barreto MD MICROBIOLOGY - GENERAL ORDERABL ES Final Result Performing Organization Address [facility]/ZIP Co de Phone Number [facility] [address] [place] [address], * (ABNORMAL) PRO-BRAIN NATRIURETIC PEPTIDE (04/22/2024 1:00 PM MEDICAL OFFICE TECHNICIAN) Pathologist [facility] PRO-B TYPE NATRIURETIC PEPTIDE 891(H) <450 PG/ML 04/22/2024 1:50 PM MEDICAL OFFICE TECHNICIAN [facility] Comment: CUT POINTS ESTABLISHED [...] 72% FOR ACUTE CHF. 04/22/2024 1:00 PM MEDICAL OFFICE TECHNICIAN us Francisco Barreto MD LABORATORY Final Result [facility] [address] [place] [address], * (ABNORMAL) COMPREHENSIVE METABOLIC PANEL (04/22/2024 1:00 PM MEDICAL OFFICE TECHNICIAN) GLUCOSE 117(H) 70 - 99 MG/DL 04/22/2024 1:50 PM [facility] BUN 19(H) 7 - 18 MG/DL 04/22/2024 1:50 PM [facility] CREATININE S/P/B 1.17(H) 0.55 - 1.02 MG/DL 04/22/2024 1:50 PM [facility] SODIUM S/P/B 132(L) 136 - 145 MMOL/L 04/22/2024 1:50 PM [facility] POTASSIUM S/P/B 3.8 3.5 - 5.1 MMOL/L 04/22/2024 1:50 PM [facility] CHLORIDE S/P/B 93(L) 100 - 108 MMOL/L 04/22/2024 1:50 PM [facility] CO2 31.6 21 - 32 MMOL/L 04/22/2024 1:50 PM [facility] CALCIUM S/P/B 9.0 8.5 - 10.1 MG/DL 04/22/2024 1:50 PM [facility] BILIRUBIN TOTAL S/P/B 0.4 0.2 - 1.2 MG/DL 04/22/2024 1:50 PM [facility] TOTAL PROTEIN S/P/B 7.1 6.4 - 8.2 G/DL 04/22/2024 1:50 PM [facility] ALBUMIN S/P/B 4.0 3.4 - 5.0 G/DL 04/22/2024 1:50 PM [facility] AST 38(H) 15 - 37 U/L 04/22/2024 1:50 PM [facility] ALT 43 14 - 55 U/L 04/22/2024 1:50 PM [facility] ALKALINE PHOSPHATASE S/P/B 82 50 - 136 U/L 04/22/2024 1:50 PM [facility] ANION GAP 7.4 5 - 15 MMOL/L 04/22/2024 1:50 PM [facility] BUN CREATININE RATIO 16.2 6 - 26 04/22/2024 1:50 PM [facility] A/G RATIO 1.3 1.0 - 2.0 RATIO 04/22/2024 1:50 PM [facility] GFR ESTIMATE 45(L) >90 ML/MIN/1.7 3 M2 04/22/2024 1:50 PM [facility] Comment: NOTE: eGFR is not calculated for patients <18 years of age. This is an estimated GFR calculation using the new CKD EPI creatinine equation without race and so does not require a correction factor for race. This estimated GFR should not be used for calculating drug doses. 04/22/2024 1:00 PM MEDICAL OFFICE TECHNICIAN Francisco Barreto MD LABORATORY Final Result [facility] [address] [place] [address], * (ABNORMAL) CBC W/DIFF AUTOMATED (04/22/2024 1:00 PM MEDICAL OFFICE TECHNICIAN) WBC 4.92 4.4 - 11.0 x10'3/uL 04/22/2024 1:27 PM MEDICAL OFFICE TECHNICIAN [facility] RBC 4.05(L) 4.50 - 5.10 x10'6/uL 04/22/2024 1:27 PM [facility] HGB 12.5 12.3 - 15.3 G/DL 04/22/2024 1:27 PM [facility] HCT 36.9 35.9 - 44.6 % 04/22/2024 1:27 PM [facility] MCV 91.1 80.0 - 96.0 FL 04/22/2024 1:27 PM [facility] MCH 30.9 25.3 - 30.9 PG 04/22/2024 1:27 PM [facility] MCHC 33.9 31.0 - 34.1 G/DL 04/22/2024 1:27 PM [facility] RDW 12.3(L) 12.4 - 15.1 % 04/22/2024 1:27 PM [facility] PLT 218 151 - 353 x10'3/uL 04/22/2024 1:27 PM [facility] MPV 9.2(L) 9.6 - 12.0 FL 04/22/2024 1:27 PM [facility] RBC MORPHOLOGY NORMAL 04/22/2024 1:27 PM [facility] PLT MORPH. NORMAL 04/22/2024 1:27 PM [facility] WBC MORPHOLOGY NORMAL 04/22/2024 1:27 PM [facility] LYMPHOCYTES % 31.7 15.8 - 45.0 % 04/22/2024 1:27 PM [facility] NEUTROPHILS % 59.0 42.1 - 71.9 % 04/22/2024 1:27 PM [facility] MONOCYTES % 8.5 5.7 - 12.5 % 04/22/2024 1:27 PM [facility] EOSINOPHILS 0.0 0.0 - 5.6 % 04/22/2024 1:27 PM [facility] BASOPHILS 0.4 0.0 - 1.3 % 04/22/2024 1:27 PM [facility] ABS. NEUTROPHILS 2.90 1.40 - 6.00 x10'3/uL 04/22/2024 1:27 PM [facility] IMMATURE GRANS % 0.4 0.0 - 0.5 % 04/22/2024 1:27 PM [facility] ABS. LYMPHOCYTES 1.56 0.80 - 4.70 x10'3/uL 04/22/2024 1:27 PM [facility] 04/22/2024 1:00 PM MEDICAL OFFICE TECHNICIAN us Francisco Barreto MD LABORATORY Final Result [facility] [address] [place] [address], * TROPONIN, QUANT (04/22/2024 1:00 PM MEDICAL OFFICE TECHNICIAN) Pathologist [facility] TROPONIN I HIGH SENSITIVITY 17 0 - 50 ng/L 04/22/2024 1:47 PM MEDICAL OFFICE TECHNICIAN [facility] Comment: HIGH DOSES OF BIOTIN, TROPONIN-SPECIFIC AUTOANTIBODIES, AND ANTIBODY THERAPY CONTAINING HAMA MAY INTERFERE WITH THIS TEST RESULT. CORRELATION TO CLINICAL HISTORY AND PRESENTATION RECOMMENDED. 04/22/2024 1:00 PM MEDICAL OFFICE TECHNICIAN us Francisco Barreto MD LABORATORY Final Result Performing Organization Address [facility] Co de Phone Number [facility] [address] [place] [address], [place] [phone] * INFLUENZA A & B (04/22/2024 12:10 PM MEDICAL OFFICE TECHNICIAN) SPECIMEN TYPE NASOPHARYNGEAL SWAB 04/22/2024 1:27 PM MEDICAL OFFICE TECHNICIAN [facility] INFLUENZA A NEGATIVE NEGATIVE 04/22/2024 1:47 PM MEDICAL OFFICE TECHNICIAN [facility] INFLUENZA B NEGATIVE NEGATIVE 04/22/2024 1:47 PM MEDICAL OFFICE TECHNICIAN [facility] NASOPHARYNGEAL SWAB / Unknown 04/22/2024 12:10 PM MEDICAL OFFICE TECHNICIAN us Francisco Barreto MD MICROBIOLOGY - GENERAL ORDERABL ES Final Result Performing Organization Address [facility] de Phone Number [facility] [address] [place] [address], [place] [phone] * RESP SYNCYTIAL VIRUS (04/22/2024 12:10 PM MEDICAL OFFICE TECHNICIAN) SPECIMEN TYPE NASOPHARYNGEAL SWAB 04/22/2024 1:26 PM MEDICAL OFFICE TECHNICIAN [facility] RAPID RSV NEGATIVE NEGATIVE 04/22/2024 1:46 PM MEDICAL OFFICE TECHNICIAN [facility] NASOPHARYNGEAL SWAB / Unknown 04/22/2024 12:10 PM MEDICAL OFFICE TECHNICIAN us Francisco Barreto MD MICROBIOLOGY - GENERAL ORDERABL ES Final Result Performing Organization Address [facility] Co de Phone Number [facility] [address] [place] [address], from Last 3 Months Insurance MEDICARE GENERIC - COMMERCIAL Care Teams Journal Clerk Relationship Specialty Start Date End Date Sandro Kim MD [address] [place] [address] PCP - General FAMILY PRACTICE 04/22/24
--- OUTSIDE RECORDS SUMMARY | 2024-04-26 17:36 | XMS_ITS | Clinical Summary ---
Author Organization [facility] [address] Address [address] [place] [address] Care Team Providers Care Manager Production Name Role Phone Sandro Kim MD Primary [...] on file Legal Sex Female 9:33 PM RETREAD SUPERVISOR Gender Identity Not on file Sexual Orientation Not on file Obstetrics History Last Filed Vital Signs Vital Sign Reading Time Taken Comments Blood Pressure 126/72 01/15/2024 10:43 AM RETREAD SUPERVISOR Pulse 60 01/15/2024 10:43 AM RETREAD SUPERVISOR Temperature - - Respiratory Rate 16 01/15/2024 10:43 AM RETREAD SUPERVISOR Oxygen Saturation 92% 11/30/2022 11:24 AM CDT Inhaled Oxygen Concentration - - Weight 47.6 kg (105 lb) 01/15/2024 10:43 AM RETREAD SUPERVISOR Height 149.9 cm (4' 11 ) 01/15/2024 10:43 AM RETREAD SUPERVISOR Body Mass Index 21.21 01/15/2024 10:43 AM RETREAD SUPERVISOR Plan of Treatment Health Maintenance Due Date [...] COMMERCIAL GENERIC MEDICARE COMMERCIAL GENERIC Care Teams Manager Production Relationship Specialty Start Date End Date Sandro Kim MD [address] [place] [address] PCP - General Family Medicine 01/15/24
--- OUTSIDE RECORDS SUMMARY | 2024-04-26 17:36 | XMS_ITS | Referral Summary ---
Author Organization [facility] [address] Address [address] [place] [address] Care Team Providers Care Correctional Classification Counselor Name Role Phone Sandro Kim MD Primary Care Provider [phone] Allergies Active Allergy Reactions Criticality Noted Date [...] on file Legal Sex Female 9:33 PM EDUCATION AND TRAINING COORDINATOR Gender Identity Not on file Sexual Orientation Not on file Last Filed Vital Signs Vital Sign Reading Time Taken Comments Blood Pressure 126/72 01/15/2024 10:43 AM EDUCATION AND TRAINING COORDINATOR Pulse 60 01/15/2024 10:43 AM EDUCATION AND TRAINING COORDINATOR Temperature - - Respiratory Rate 16 01/15/2024 10:43 AM EDUCATION AND TRAINING COORDINATOR Oxygen Saturation 92% 11/30/2022 11:24 AM CDT Inhaled Oxygen Concentration - - Weight 47.6 kg (105 lb) 01/15/2024 10:43 AM EDUCATION AND TRAINING COORDINATOR Height 149.9 cm (4' 11 ) 01/15/2024 10:43 AM EDUCATION AND TRAINING COORDINATOR Body Mass Index 21.21 01/15/2024 10:43 AM EDUCATION AND TRAINING COORDINATOR Plan of Treatment Not on file Insurance MEDICARE COMMERCIAL GENERIC MEDICARE COMMERCIAL GENERIC Care Teams Correctional Classification Counselor Relationship Specialty Start Date End Date Sandro Kim MD [address] [place] [address] PCP - General Family Medicine 01/15/24
--- OUTSIDE RECORDS SUMMARY | 2024-04-26 17:39 | XMS_ITS | Continuity of Care Document ---
Author Organization [facility] Address [address] [place] [address] [place] [address] Phone Care Team Providers Care Online Merchandising Specialist Name Role Phone Jocelyn Kessler Unavailable Unavailable Procedures Procedure Date Office/outpatient Visit, Est Post-op Follow-up Visit Post-op Follow-up Visit Post-op Follow-up Visit Remove Cataract, Insert Lens Eye Exam & Treatment IOLMaster-Professional Advance Directives Directive Yes / No Effective Date File Name No Information Encounters Encounter Description Practice Location Reason(s) For Visit Diagnoses Date Provider Providers Copied on Encounter Office/outpat ient Visit, Est [facility], [address] [place] [address] [address], [place], [place], [id number], tel:[phone] [facility] No Information 7-200 7 Victoria Carrizales [address] , [address], [place], [address], [place]. tel:[phone] [facility], [address] [place] [address] [address], [place], [place], [id number], [place] tel:[phone] [facility] No Information 9200 [address] Victoria Carrizales [address] , [address], [place], [address], [place]. tel:[phone] [facility], [address] [place] [address] [address], [place], [place], [id number], tel:[phone] [facility] No Information May-1 1-200 7 Victoria Banks. [address] , [address], [place], [place], [facility], . tel:[phone] [facility], [address] [place] [address] [address], [place], [place], [id number], tel:[phone] [facility] No Information May-0 3-200 7 Victoria Pruittn. [address] [facility] , [address], [place], [place], [facility], . tel:[phone] [facility], [address] [place] [address] [address], [place], [place], [id number], tel:[phone] [facility] No Information May-0 2-200 7 Victoria Banks. [address] , [address], [place], [place], [facility], [place]. tel:[phone] [facility], [address] [place] [address] [address], [place], [place], [id number], tel:[phone] [facility] No Information Apr-2 0-200 7 Victoria Banks. [address] [facility] , [address], [place], [place], [facility], [place]. tel:[phone] Referring Provider: Jocelyn Gonzalez [address], [place], [place], [facility]. tel:[phone] Family History Family Member Type Diagnosis Age At Onset No Information Payers Payer name Insurance type Covered libertarian ID Jamiea janinamiguel(s) [place] [id number] Social History Type Description Quantity Date Captured [...]
[2024-04-26 18:33] VITALS: BP 167/68; PULSE 80; RESP 16; TEMP 36.6; O2SAT 98
--- NOTE | 2024-04-26 18:36 | ED_ITS ---
HPI - URI/Sore Throat General Chief Complaint: Upper Respiratory Infection Stated Complaint: coughing and cold symptoms/nausea Time Seen by Provider: 04/26/24 18:36 Source: patient Mode of arrival: ambulatory Limitations: no limitations History of Present Illness HPI Narrative: 88-year-old female history of hypertension and COPD presented for complaint of cough, nausea, fatigue, left lower abdominal pain, and decreased po intake for about 10 days. Says the pain to the LLQ is due to coughing. Says she has had diarrhea which is improving. Was seen in ER 3 days ago, says labs, viral tests, urine, CXR and abdominal CT scan were WNL. Patient states since symptoms are not improving, she was waiting in the emergency room again today for 4 hours before she was taken back so she left before treatment was completed; but she did have another chest x-ray. Denies sob, wheezing, chest pain, dizziness, vomiting or fever. Pt is accompanied by daughter. Related Data Home Medications ?Medication ?Instructions ?Recorded ?Confirmed ?Last Taken ?Type aspirin 81 mg tablet 81 mg PO DAILY 11/17/19 10/07/23 Unknown History cholecalciferol (vitamin D3) 50 50 mcg PO DAILY 11/17/19 10/07/23 Unknown History mcg (2,000 unit) capsule ezetimibe 10 mg tablet 10 mg PO DAILY 11/17/19 10/07/23 Unknown History metoprolol succinate 50 mg 50 tablet PO DAILY 11/17/19 10/07/23 Unknown History tablet,extended release 24 hr vit C 250 mg-vit E 90 mg-zinc 40 2 tablet PO DAILY 11/17/19 10/07/23 Unknown History mg-copper 1 [id number] capsule (PreserVision AREDS-2) cetirizine 10 mg tablet (Zyrtec) 10 mg PO DAILY PRN 08/27/22 10/07/23 Unknown History Allergies Allergy/AdvReac Type Severity Reaction Status Date / Time metronidazole (From Flagyl) Allergy Intermediate Gastrointestinal Verified 04/26/24 18:39 Upset terbinafine (From Lamisil) Allergy Intermediate Gastrointestinal Verified 04/26/24 18:39 Upset codeine AdvReac Intermediate Nausea and Verified 04/26/24 18:39 Vomiting lisinopril AdvReac Intermediate Cough Verified 04/26/24 18:39 Review of Systems Review of Systems: per HPI All systems reviewed & are unremarkable except as noted in HPI and below [facility] Past Medical History Medical History Actinic keratosis Acute sinusitis Benign mole Biceps reflexes unequal Body mass index (BMI) less than 20 Cerumen impaction Chronic kidney disease Friction blister with infection High blood pressure Otitis media Pain and swelling of right upper extremity Persistent cough Rotator cuff tear, right Skin neoplasm Thyroid disease Surgical History Surgical History History of cholecystectomy 1971 History of thyroid surgery 1986 Family History Family History Father Dementia Hypertension Mother Hypertension Macular degeneration Sibling Atrial fibrillation Other Family history of malignant neoplasm of thyroid Social History Social History Smoking status: Never smoker Second hand tobacco smoke exposure: Yes Alcohol intake: never Substance use: never Substance use type: does not use Do You Feel Safe in your Home?: Yes Lack of Transportation: No Lack of Food: Never True Current Housing: I Have Housing Concerned About Future Housing: No Difficulty Paying Gas/Electric Bills: No Difficulty Paying for Meds: No Currently Unemployed: No Education: High School Diploma/GED Difficulty w/ Childcare or Family Care: No Living arrangements: with family Occupation/Education: 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 Please see nursing chart for further information. There is no relevant family history pertinent to the presenting complaint Exam Narrative: GENERAL: mildly ill-appearing, in no acute distress. EYES: No redness or drainage. Conjunctivae normal. ENT: Mucous membranes pink and moist. No rhinorrhea. CHEST: No respiratory distress. lungs clear to all kc. occasional moist correspondence coordinator cough. HEART: Regular rate and rhythm. No murmur appreciated. ABDOMEN: Soft, nondistended, normal active bowel sounds. Tender to LLQ. No guarding, rebound tenderness, or rigid. No pulsatile masses. No organomegaly. Negative Braswell?s sign. No periumbilical tenderness. No Supra public tenderness or distension. No hernia noted. No scars or surface trauma. EXTREMITIES: Normal range of motion. No edema. SKIN: Warm, dry, no rash. Capillary refill normal. Normal skin turgor. NEURO: Alert and oriented x3. Gait steady. PSYCH: Normal affect. Course Course Emergency Course: Patient is aware of diagnosis, understands and agrees to treatment plan. Anticipatory guidance given. Patient agrees to follow-up as directed and is aware of reasons to seek care at the emergency department. Portions of this record may have been created with voice recognition software Level of Care: Express Care Visit Vital Signs Vital signs: Vital Signs Temperature 97.9 F 04/26/24 18:33 Pulse Rate 80 04/26/24 18:33 Respiratory Rate 16 04/26/24 18:33 Blood Pressure 167/68 H 04/26/24 18:33 Pulse Oximetry 98 04/26/24 18:33 Oxygen Delivery Room Air 04/26/24 18:33 Temperature 97.9 F 04/26/24 18:33 Pulse Rate 80 04/26/24 18:33 Respiratory Rate 16 04/26/24 18:33 Blood Pressure 167/68 H 04/26/24 18:33 Pulse Oximetry 98 04/26/24 18:33 Oxygen Delivery Room Air 04/26/24 18:33 MDM - URI/Sore Throat MDM Narrative Medical decision making narrative: Discussed physical exam findings and reviewed the CXR from ER today (No acute findings). Offered pt to return to ER to finish the evaluation due to concern for symptoms present x10 days, dehydration etc. Pt declines to return to the ER, daughter says she needs to rest. Advised supportive measures and signs/symptoms to go to the ER at length. Pt is appropriate for outpt treatment and f/u with pcp, advised to call tomorrow. Will send abx and low steroid for persistent cough. Differential Diagnosis Differential diagnosis: Likely upper respiratory infection, sinusitis, viral infection, bronchitis and other (pneumonia, abdominal pain, gastroenteritis diverticulitis, hernia, appendicitis, bowel obstruction, IBS, colon cancer, AAA, kidney stone, uti, pyelonephritis, psoas abscess) Discharge Plan Discharge Clinical Impression: Bronchitis Abdominal pain Qualifiers: Abdominal location: left lower quadrant Qualified Code(s): R10.32 - Left lower quadrant pain Patient Disposition: Home, Self-Care Condition: Stable Instructions: Antibiotic Form, Acute Bronchitis (ED), Abdominal Pain (ED) Additional Instructions: Take medication as directed Recommendations over the counter Cough syrup may cause drowsiness; avoid driving or take it at night time. Tylenol every 8 hours as needed for pain Zyrtec (or Claritin/Annie) if you have nasal congestion Stay hydrated. Take small sips of fluid containing electrolytes frequently. Clear liquids (broth, jello, tea, sprite, pedialyte) Echo foods (bananas, rice, applesauce, toast, crackers) Avoid fatty, greasy, fried or spicy foods. Limit dairy until symptoms are improved. Continue the previously prescribed ondansetron as needed for nausea You should go to the hospital if you experience persistent nausea /vomiting that does not resolve and does not allow you to tolerate any food or fluids, fevers, increasing abdominal pain, persistent diarrhea, or for any other concerns. Follow up with primary care provider in 3 days. Call tomorrow to schedule appointment Patient Language: Czech Prescriptions: New azithromycin [Zithromax Z-Eron] 250 mg tablet See Rx Instructions .ROUTE .COMPLEX Qty: 6 0RF Rx Instructions: For 250 mg dose pack: take 500 mg today (day 1), then 250 mg for 4 days (days 2-5) prednisone 20 mg tablet 20 mg PO DAILY Qty: 5 0RF No Action metoprolol succinate 50 mg tablet extended release 24 hr 50 tablet PO DAILY ezetimibe 10 mg tablet 10 mg PO DAILY aspirin 81 mg tablet 81 mg PO DAILY cholecalciferol (vitamin D3) 50 mcg (2,000 unit) capsule 50 mcg PO DAILY PreserVision AREDS-2 [id number] [id number]-mg capsule 2 tablet PO DAILY Rx Instructions: administer with meals cetirizine [Zyrtec] 10 mg tablet 10 mg PO DAILY PRN triamterene-hydrochlorothiazid 37.5-25 mg tablet See Rx Instructions .ROUTE .COMPLEX Qty: 90 3RF Dose Instruction: TAKE 1 TABLET BY MOUTH DAILY Rx Instructions: TAKE 1 TABLET BY MOUTH DAILY levothyroxine 50 mcg tablet See Rx Instructions .ROUTE .COMPLEX Qty: 90 1RF Dose Instruction: TAKE 1 TABLET BY MOUTH DAILY Rx Instructions: TAKE 1 TABLET BY MOUTH DAILY Follow-up/Referrals: Sandro Kim MD [Primary Care Provider] - Time of Disposition: 19:17
== END 2024-04-26 19:18 | disposition home or self-care (01) ==
PROVIDERS: Emergency Provider Nurse Practitioner Family; PCP Family Medicine
DX: J40 Bronchitis, not specified as acute or chronic (principal); R10.32 Left lower quadrant pain; I12.9 Hypertensive chronic kidney disease with stage 1 through stage 4 chronic kidney disease, or unspecified chronic kidney disease; N18.9 Chronic kidney disease, unspecified; J44.9 Chronic obstructive pulmonary disease, unspecified; Z85.828 Personal history of other malignant neoplasm of skin; Z79.82 Long term (current) use of aspirin
CPT/HCPCS: 99213; G0463

== ENCOUNTER 2024-05-07 10:05 | Outpatient (CLI) | payer MEDICARE, SELFPAY ==
[2024-05-07 10:57] LABS: Basophils Percent Auto 0.5 % (0.2-1.2); Eosinophils Absolute Auto 0.1 K/mm3 (0-0.3); Eosinophils Percent Auto 0.9 % (0-4.4); Immature Granulocyte Absolute 0.06 K/mm3 (0.00-0.031); Immature Granulocyte Percent A 0.9 % (0-0.5); Lymphocytes Absolute Auto 1.75 K/mm3 (0.9-3.2); Lymphocytes Percent Auto 26.9 % (18.3-44.2); Mean Corpuscular HGB Conc 32.4 g/dl (32-36); Mean Corpuscular Hemoglobin 30.3 pg (26-34); Mean Corpuscular Volume 93.7 fl (80-100); Mean Platelet Volume 8.2 fl (7.4-10.4); Monocytes Absolute Auto 0.8 K/mm3 (0.1-0.6); Monocytes Percent Auto 11.7 % (2.6-8.5); Neutrophils Absolute Auto 3.9 K/mm3 (1.3-6.7); Neutrophils Percent Auto 59.1 % (45.5-73.1); Platelet Count Result 448 k/mm3 (150-375); Red Blood Count 3.63 M/mm3 (4.2-5.4); Red Cell Distribution Width 12.7 % (11.5-14.5); White Blood Count 6.5 K/mm3 (4.5-10.0)
[2024-05-07 11:19] LABS: Anion Gap 7 mmol/L (4-12); Blood Urea Nitrogen 16 mg/dL (7-17); Carbon Dioxide 33 mmol/L (22-30); Chloride 98 mmol/L (98-107); Estimated Glomerular Filt Rate > 60; Glucose 99 mg/dL (65-110); Potassium 3.6 mmol/L (3.4-5.0); Sodium 138 mmol/L (137-145)
--- OUTSIDE RECORDS SUMMARY | 2024-05-07 11:27 | XMS_ITS | Clinical Summary ---
Author Organization [facility] Address [address] [place] [address] Care Team Providers Care Police Or Patrol Park Officer Name Role Phone Sandro Kim MD Primary Care Provider [phone] Allergies Active Allergy Reactions Criticality Noted Date [...] 1 tablet (50 mcg total) by mouth daily. Active metoprolol succinate ER (TOPROL-XL) 50 MG 24 hr tablet Take 1 tablet (50 mg total) by mouth daily. Active aspirin EC (ECOTRIN) 81 MG tablet Take 1 tablet (81 mg total) by mouth daily. Active vitamin D3 10 mcg tablet Take 1 tablet (10 mcg total) by mouth daily. Active Multiple Vitamins-Mineral s (PRESERVISION AREDS 2 OR) Active azithromycin (ZITHROMAX) 250 MG tablet Take 1-2 tablets (250-500 mg total) by mouth see administration instructions. Take 2 tablets PO ON DAY 1, THEN take 1 tablet PO FOR 4 DAYS 025 Active benzonatate (TESSALON) 100 MG capsule Take 1 capsule (100 mg total) by mouth 3 (three) times daily as needed for Cough. 20 capsule 025 2024 Active predniSONE (DELTASONE) 20 MG tablet Take 1 tablet (20 mg total) by mouth daily. 3 tablet Active ondansetron (ZOFRAN-ODT) 4 MG disintegrating tablet Take 1 tablet (4 mg total) by mouth every 8 (eight) hours as needed for Nausea. 20 tablet Active amoxicillin-clav ulanate (AUGMENTIN) 500-125 MG tablet Take 1 tablet (500 mg of amoxicillin total) by mouth 2 (two) times a day for 10 days. 20 tablet 2024 Active albuterol sulfate HFA 108 (90 Base) MCG/ACT inhaler Inhale 2 puffs into the lungs every 6 (six) hours as needed for Wheezing. 18 g 1 Active losartan (COZAAR) 25 MG tablet Take 1 tablet (25 mg total) by mouth daily. 30 tablet 1 Active pantoprazole EC (PROTONIX) 20 MG tablet Take 1 tablet (20 mg total) by mouth daily. 30 tablet 2 Active triamterene-hydr oCHLOROthiazide (DYAZIDE) 37.5-25 MG capsule Take 1 capsule by mouth daily. 2024 Discontinued(S top Taking at Discharge) benzonatate (TESSALON) 100 MG capsule Take 1 capsule (100 mg total) by mouth 3 (three) times daily as needed for Cough. 20 capsule 2024 Discontinued traMADol (ULTRAM) 50 MG tabletIndication s:Acute Pain < 3 Day Supply Take 0.5 tablets (25 mg total) by mouth every 6 (six) hours as needed for Pain. Indications: Acute Pain < 3 Day Supply 5 tablet 2024 Discontinued(E rror) ondansetron (ZOFRAN-ODT) 4 MG disintegrating tablet Take 1 tablet (4 mg total) by mouth every 8 (eight) hours as needed for Nausea. 20 tablet 025 2024 Discontinued predniSONE (DELTASONE) 20 MG tablet Take 1 tablet (20 mg total) by mouth daily. 2024 Discontinued Active Problems Problem Noted Date Diagnosed Date Hyponatremia 04/28/2024 Encounters Date Type Department Care Team Description 05/05/2024 Hospital Follow-up Call [facility] [place] [place] [address] Prachi Raymond LPN Follow Up Call (YOLANDA 04/28-05/02/24) 04/28/2024 8:04 AM NET APPLICATION SUPPORT SPECIALIST - 05/02/2024 3:38 PM NET APPLICATION SUPPORT SPECIALIST Hospital Encounter [facility] [address] [place] [address] June Maddox MD Goldberg, Deborah, MD Abdominal Pain Discharge Disposition: Home or Self Care (Routine Discharge) 04/28/2024 Travel 04/22/2024 12:52 PM NET APPLICATION SUPPORT SPECIALIST - 04/22/2024 4:30 PM NET APPLICATION SUPPORT SPECIALIST Emergency [facility] Emergency Room [address] [place] [address] Francisco Barreto MD Cough Discharge Disposition: Home or Self Care (Routine Discharge) 04/22/2024 Travel from Last 3 Months Social History Tobacco Use Types Packs/Day Years Used Date Smoking Tobacco: Never Passive Smoke Exposure: Never Smokeless Tobacco: Never Tobacco Cessation:Counseling Given: No [facility] Utilities Answer Date Recorded In the past 12 months has [facility] [employer], gas, oil, or water [employer] threatened to shut off services in your home? No 04/28/2024 Humiliation, Afraid, Rape, and Kick questionnair e Answer Date Recorded Within the last year, have y ou been afraid of your partner or ex-partner? No 04/28/2024 Within the last year, have y ou been humiliated or emotionally abused in other ways by your partner or ex-partner? No Within the last year, have y ou been kicked, hit, slapped, or otherwise physically hurt by your partner or ex-partner? No 04/28/2024 Within the last year, have y ou been raped or forced to have any kind of sexual activity by your partner or ex-partner? No 04/28/2024 Overall Financial Resource Strain (CARDIA) Answe r Date Recorded How hard is it for you to pa y for the very basics like food, housing, medical care, and heating? Not hard at all 04/28/2024 Hunger Vital Sign Answer Date Recorded Within the past 12 months, y ou worried that your food would run out before you got the money to buy more. Never true 04/28/19 Within the past 12 months, t he food you bought just didn't last and you didn't have money to get more. Never true 04/28/2024 PRAPARE - Transportation Answer Date Re corded In the past 12 months, has l ack of transportation kept you from medical appointments or from getting medications? No 04/05 In the past 12 months, has l ack of transportation kept you from meetings, work, or from getting things needed for daily living? No 04/28/2024 Housing Stability Vital Sign Answer Brad e Recorded In the last 12 months, was t here a time when you were not able to pay the mortgage or rent on time? No 04/28/2024 In the past 12 months, how m any times have you moved where you were living? 0 04/28/2024 At any time in the past 12 m [facility], were you homeless or living in a assisted (including now)? No 04/28/2024 Comments Unknown Sex and Gender Information Value Date Recorded Sex Assigned at Female 04/22/2024 12:49 PM NET APPLICATION SUPPORT SPECIALIST Legal Sex Female 12:38 PM NET APPLICATION SUPPORT SPECIALIST Gender Identity Not on file Sexual Orientation Not on file Last Filed Vital Signs Vital Sign Reading Time Taken Comments Blood Pressure 155/59 05/02/2024 7:40 AM NET APPLICATION SUPPORT SPECIALIST Pulse 65 05/02/2024 7:40 AM NET APPLICATION SUPPORT SPECIALIST Temperature 36.6 C (97.9 F) 05/02/2024 7:40 AM NET APPLICATION SUPPORT SPECIALIST Respiratory Rate 18 05/02/2024 7:40 AM NET APPLICATION SUPPORT SPECIALIST Oxygen Saturation 97% 05/02/2024 7:40 AM NET APPLICATION SUPPORT SPECIALIST Inhaled Oxygen Concentration - - Weight 46.1 kg (101 lb 10.1 oz) 04/29/2024 5:00 AM NET APPLICATION SUPPORT SPECIALIST Height 149.9 cm (4' 11 ) 04/28/2024 8:10 AM NET APPLICATION SUPPORT SPECIALIST Body Mass Index 20.53 04/28/2024 8:10 AM NET APPLICATION SUPPORT SPECIALIST Plan of Treatment Health Maintenance Due [...] on patient's age to complete this topic Goals Goal Patient Goal Type Associated Problems Recent Progress Patient-Stated? Author Patient will return to prior living situation and remain independent in ADLs upon discharge from hospital Lifestyle No Nina Frey RN Procedures Procedure Name Priority Date/Time Associated Diagnosis Comments COMPREHENSIVE METABOLIC PANEL Routine 05/01/2024 10:42 AM NET APPLICATION SUPPORT SPECIALIST CBC W/DIFF AUTOMATED Routine 05/01/2024 10:42 AM NET APPLICATION SUPPORT SPECIALIST COMPREHENSIVE METABOLIC PANEL Routine 04/30/2024 6:08 AM NET APPLICATION SUPPORT SPECIALIST PROCALCITONIN (PCT) Routine 04/29/2024 5 :35 AM NET APPLICATION SUPPORT SPECIALIST MAGNESIUM Routine 04/29/2024 5:35 AM NET APPLICATION SUPPORT SPECIALIST CBC W/DIFF AUTOMATED Routine 04/29/2024 5:35 AM NET APPLICATION SUPPORT SPECIALIST BASIC METABOLIC PANEL TIMED 04/29/2024 5:35 AM NET APPLICATION SUPPORT SPECIALIST OSMOLALITY, URINE STAT 04/28/2024 9:1 2 PM NET APPLICATION SUPPORT SPECIALIST SODIUM URINE RANDOM STAT 04/28/2024 9 :12 PM NET APPLICATION SUPPORT SPECIALIST HC URINALYSIS AUTO W/O MICRO STAT 04/28/2024 9:12 PM NET APPLICATION SUPPORT SPECIALIST BASIC METABOLIC PANEL TIMED 04/28/2024 9:00 PM NET APPLICATION SUPPORT SPECIALIST CT CHEST+ABD+PEL WO CON Today 04/28/2024 6:56 PM NET APPLICATION SUPPORT SPECIALIST BASIC METABOLIC PANEL STAT 04/28/2024 2:58 PM NET APPLICATION SUPPORT SPECIALIST ECG 12-LEAD Routine 04/28/2024 8:32 AM NET APPLICATION SUPPORT SPECIALIST PROCALCITONIN (PCT) Routine 04/28/2024 8 :27 AM NET APPLICATION SUPPORT SPECIALIST TROPONIN, QUANT STAT 04/28/2024 8:27 AM NET APPLICATION SUPPORT SPECIALIST LIPASE STAT 04/28/2024 8:27 AM NET APPLICATION SUPPORT SPECIALIST COMPREHENSIVE METABOLIC PANEL STAT 04/28/2024 8:27 AM NET APPLICATION SUPPORT SPECIALIST CBC W/DIFF AUTOMATED STAT 04/28/2024 8:27 AM NET APPLICATION SUPPORT SPECIALIST RESPIRATORY PCR PANEL 2 STAT 04/28/2024 8:18 AM NET APPLICATION SUPPORT SPECIALIST CT ABD+PEL W CON STAT 04/22/2024 3:25 PM NET APPLICATION SUPPORT SPECIALIST URINALYSIS MICRO ONLY STAT 04/22/2024 2:35 PM NET APPLICATION SUPPORT SPECIALIST HC URINALYSIS AUTO W/O MICRO STAT 04/22/2024 2:35 PM NET APPLICATION SUPPORT SPECIALIST XR CHEST PORTABLE STAT 04/22/2024 1:2 5 PM NET APPLICATION SUPPORT SPECIALIST STREP A RAPID STAT 04/22/2024 1:25 PM NET APPLICATION SUPPORT SPECIALIST ECG 12-LEAD STAT 04/22/2024 1:20 PM NET APPLICATION SUPPORT SPECIALIST CORONAVIRUS (COVID 19) STAT 1:10 PM NET APPLICATION SUPPORT SPECIALIST PRO-BRAIN NATRIURETIC PEPTIDE STAT 04/22/2024 1:00 PM NET APPLICATION SUPPORT SPECIALIST TROPONIN, QUANT STAT 04/22/2024 1:00 PM NET APPLICATION SUPPORT SPECIALIST COMPREHENSIVE METABOLIC PANEL STAT 04/22/2024 1:00 PM NET APPLICATION SUPPORT SPECIALIST CBC W/DIFF AUTOMATED STAT 04/22/2024 1:00 PM NET APPLICATION SUPPORT SPECIALIST INFLUENZA A & B STAT 04/22/2024 12:10 PM NET APPLICATION SUPPORT SPECIALIST RESP SYNCYTIAL VIRUS STAT 04/22/2024 12:10 PM NET APPLICATION SUPPORT SPECIALIST from Last 3 Months Results * (ABNORMAL) COMPREHENSIVE METABOLIC PANEL (05/01/2024 10:42 AM NET APPLICATION SUPPORT SPECIALIST) Only the most recent of4 resultswithin the time period is included. GLUCOSE 121(H) 70 - 99 MG/DL 05/01/2024 11:28 AM NET APPLICATION SUPPORT SPECIALIST [facility] BUN 14 7 - 18 MG/DL 05/01/2024 11:28 AM NET APPLICATION SUPPORT SPECIALIST [facility] CREATININE S/P/B 1.07(H) 0.55 - 1.02 MG/DL 05/01/2024 11:28 AM NET APPLICATION SUPPORT SPECIALIST [facility] SODIUM S/P/B 134(L) 136 - 145 MMOL/L 05/01/2024 11:28 AM NET APPLICATION SUPPORT SPECIALIST [facility] POTASSIUM S/P/B 3.4(L) 3.5 - 5.1 MMOL/L 05/01/2024 11:28 AM [facility] CHLORIDE S/P/B 104 97 - 115 MMOL/L 05/01/2024 11:28 AM [facility] CO2 22.7 21 - 32 MMOL/L 05/01/2024 11:28 AM [facility] CALCIUM S/P/B 8.6 8.5 - 10.1 MG/DL 05/01/2024 11:28 AM [facility] BILIRUBIN TOTAL S/P/B 0.6 0.2 - 1.2 MG/DL 05/01/2024 11:28 AM [facility] Comment: THIS ASSAY IS NOT RECOMMENDED FOR PATIENTS UNDERGOING TREATMENT WITH ELTROMBOPAG DUE TO THE POTENTIAL FOR FALSELY ELEVATED RESULTS. TOTAL PROTEIN S/P/B 6.5 6.4 - 8.2 G/DL 05/01/2024 11:28 AM [facility] ALBUMIN S/P/B 3.0(L) 3.4 - 5.0 G/DL 05/01/2024 11:28 AM [facility] AST 22 15 - 37 U/L 05/01/2024 11:28 AM [facility] ALT 25 14 - 55 U/L 05/01/2024 11:28 AM [facility] ALKALINE PHOSPHATASE S/P/B 73 50 - 136 U/L 05/01/2024 11:28 AM [facility] ANION GAP 7.3 2 - 10 MMOL/L 05/01/2024 11:28 AM [facility] BUN CREATININE RATIO 13.1 6 - 26 05/01/2024 11:28 AM [facility] A/G RATIO 0.9(L) 1.0 - 2.0 RATIO 05/01/2024 11:28 AM [facility] GFR ESTIMATE 50(L) >90 ML/MIN/1.7 3 M2 05/01/2024 11:28 AM [facility] Comment: NOTE: eGFR is not calculated for patients <18 years of age or gender unknown. This is an estimated GFR calculation using the new CKD EPI creatinine equation without race and so does not require a correction factor for race. This estimated GFR should not be used for calculating drug doses. 05/01/2024 10:4 2 AM NET APPLICATION SUPPORT SPECIALIST Atiya Herring MD LABORATORY Final Result [facility] [address] [place] [address], [place] [phone] * (ABNORMAL) CBC W/DIFF AUTOMATED (05/01/2024 10:42 AM NET APPLICATION SUPPORT SPECIALIST) Only the most recent of4 resultswithin the time period is included. WBC 7.06 4.5 - 11.0 x10'3/uL 05/01/2024 11:02 AM [facility] RBC 3.50(L) 4.20 - 5.40 x10'6/uL 05/01/2024 11:02 AM [facility] HGB 10.7(L) 12.0 - 16.0 G/DL 05/01/2024 11:02 AM [facility] HCT 32.3(L) 38.0 - 48.0 % 05/01/2024 11:02 AM [facility] MCV 92.3 81.0 - 99.0 FL 05/01/2024 11:02 AM [facility] MCH 30.6 27.0 - 31.0 PG 05/01/2024 11:02 AM [facility] MCHC 33.1 32.0 - 36.0 G/DL 05/01/2024 11:02 AM [facility] RDW 12.2 11.5 - 14.5 % 05/01/2024 11:02 AM [facility] PLT 409(H) 130 - 400 x10'3/uL 05/01/2024 11:02 AM [facility] MPV 8.4(L) 9.3 - 12.2 FL 05/01/2024 11:02 AM [facility] DIFFERENTIAL TYPE AUTOMATED DIFFERENTIAL 05/01/2024 11:02 AM [facility] NEUTROPHILS % 84.0 % 05/01/2024 11:02 AM [facility] LYMPHOCYTES % 8.8 % 05/01/2024 11:02 AM [facility] MONOCYTES % 6.2 % 05/01/2024 11:02 AM [facility] EOSINOPHILS 0.1 % 05/01/2024 11:02 AM [facility] BASOPHILS 0.3 % 05/01/2024 11:02 AM [facility] IMMATURE GRANS % 0.6 % 05/01/19 11:02 AM [facility] ABS. NEUTROPHILS 5.93 1.80 - 7.70 x10'3/uL 05/01/2024 11:02 AM [facility] ABS. LYMPHOCYTES 0.62(L) 1.00 - 4.80 x10'3/uL 05/01/2024 11:02 AM [facility] ABS. MONOCYTES 0.44 0.24 - 0.86 x10'3/uL 05/01/2024 11:02 AM [facility] ABS. EOSINOPHILS 0.01(L) 0.04 - 0.36 x10'3/uL 05/01/2024 11:02 AM [facility] ABS. BASOPHILS 0.02 0.01 - 0.08 x10'3/uL 05/01/2024 11:02 AM [facility] ABS. IMMATURE GRANULOCYTES 0.04 0.00 - 0.49 x10'3/uL 05/01/2024 11:02 AM NET APPLICATION SUPPORT SPECIALIST [facility] 05/01/2024 10:4 2 AM NET APPLICATION SUPPORT SPECIALIST Atiya Herring MD LABORATORY Final Result [facility] [address] [place] [phone], * PROCALCITONIN (PCT) (04/29/2024 5:35 AM NET APPLICATION SUPPORT SPECIALIST) Only the most recent of2 resultswithin the time period is included. [facility] Procalcitonin <0.05 0.00 - 0.49 NG/ML 04/29/2024 7:47 AM NET APPLICATION SUPPORT SPECIALIST [facility] 04/29/2024 5:35 AM NET APPLICATION SUPPORT SPECIALIST Atiya Herring MD LABORATORY Final Result Performing Organization Address City/[facility]/ZIP Co de Phone Number [facility] [address] [place] [id number], [place] [phone] * (ABNORMAL) BASIC METABOLIC PANEL (04/29/2024 5:35 AM NET APPLICATION SUPPORT SPECIALIST) Only the most recent of3 resultswithin the time period is included. Pathologist [facility] GLUCOSE 87 70 - 99 MG/DL 04/29/2024 6:21 AM NET APPLICATION SUPPORT SPECIALIST [facility] BUN 16 7 - 18 MG/DL 04/29/2024 6:21 AM [facility] CREATININE S/P/B 1.12(H) 0.55 - 1.02 MG/DL 04/29/2024 6:21 AM NET APPLICATION SUPPORT SPECIALIST [facility] SODIUM S/P/B 129(L) 136 - 145 MMOL/L 04/29/2024 6:21 AM [facility] POTASSIUM S/P/B 3.5 3.5 - 5.1 MMOL/L 04/29/2024 6:21 AM [facility] CHLORIDE S/P/B 96(L) 97 - 115 MMOL/L 04/29/2024 6:21 AM [facility] CO2 26.7 21 - 32 MMOL/L 04/29/2024 6:21 AM [facility] CALCIUM S/P/B 8.4(L) 8.5 - 10.1 MG/DL 04/29/2024 6:21 AM [facility] ANION GAP 6.3 2 - 10 MMOL/L 04/29/2024 6:21 AM [facility] BUN CREATININE RATIO 14.3 6 04/29/2024 6:21 AM [facility] GFR ESTIMATE 48(L) >90 ML/MIN/1.7 3 M2 04/29/2024 6:21 AM [facility] Comment: NOTE: eGFR is not calculated for patients <18 years of age or gender unknown. This is an estimated GFR calculation using the new CKD EPI creatinine equation without race and so does not require a correction factor for race. This estimated GFR should not be used for calculating drug doses. 04/29/2024 5:35 AM NET APPLICATION SUPPORT SPECIALIST us Betty Romero MUSEUM EDUCATOR LABORATORY Final Re sult [facility] [address] [place] [address], [place] [phone] * MAGNESIUM (04/29/2024 5:35 AM NET APPLICATION SUPPORT SPECIALIST) MAGNESIUM 2.1 1.8 - 2.4 MG/DL 04/29/2024 6:21 AM [facility] 04/29/2024 5:35 AM NET APPLICATION SUPPORT SPECIALIST Betty Romero MUSEUM EDUCATOR LABORATORY Final Re sult Performing Organization Address City/[facility]/ZIP Co de Phone Number [facility] [address] [place] [address], [place] [phone] * SODIUM URINE RANDOM (04/28/2024 9:12 PM NET APPLICATION SUPPORT SPECIALIST) NA RANDOM (U) 36 MMOL/L 04/29/2024 12:07 PM NET APPLICATION SUPPORT SPECIALIST [facility] Comment:REFERENCE RANGE NOT ESTABLISHED URINE SPECIMEN / Unknown 04/28/2024 9:12 PM NET APPLICATION SUPPORT SPECIALIST Betty Romero MUSEUM EDUCATOR URINE ORDERABLES Final R esult Performing Organization Address City/[facility]/ZIP Co de Phone Number [facility] [address] [place] [address], [place] [phone] * (ABNORMAL) URINALYSIS (04/28/2024 9:12 PM NET APPLICATION SUPPORT SPECIALIST) Only the most recent of2 resultswithin the time period is included. SPECIMEN TYPE URINE CLEAN CATCH 04/28/2024 10:15 PM NET APPLICATION SUPPORT SPECIALIST [facility] COLOR (U) LIGHT YELLOW 04/28/2024 11:36 PM NET APPLICATION SUPPORT SPECIALIST [facility] TRANSPARENCY CLEAR 04/28/2024 11:36 PM NET APPLICATION SUPPORT SPECIALIST [facility] SPECIFIC GRAVITY (U) 1.007 1.001 - 1.030 04/28/2024 11:36 PM NET APPLICATION SUPPORT SPECIALIST [facility] U PH 6.5 5.0 - 9.0 04/28/2024 11:36 PM NET APPLICATION SUPPORT SPECIALIST [facility] LEUKOCYTES (U) NEGATIVE NEGATIVE 04/28/2024 11:36 PM NET APPLICATION SUPPORT SPECIALIST [facility] NITRITES NEGATIVE NEGATIVE 04/28/2024 11:36 PM NET APPLICATION SUPPORT SPECIALIST [facility] PROTEIN RANDOM (U) NEGATIVE <30 MG/DL 04/28/2024 11:36 PM NET APPLICATION SUPPORT SPECIALIST [facility] GLUCOSE (U) NORMAL NORMAL MG/DL 04/28/2024 11:36 PM NET APPLICATION SUPPORT SPECIALIST [facility] KETONES MG/DL (U) NEGATIVE NEGATIVE MG/DL 04/28/2024 11:36 PM NET APPLICATION SUPPORT SPECIALIST [facility] UROBILINOGEN NORMAL NORMAL MG/DL 04/28/2024 11:36 PM NET APPLICATION SUPPORT SPECIALIST [facility] BILIRUBIN (U) NEGATIVE NEGATIVE MG/DL 04/28/2024 11:36 PM NET APPLICATION SUPPORT SPECIALIST [facility] BLOOD (U) TRACE(A) NEGATIVE 04/28/2024 11:36 PM NET APPLICATION SUPPORT SPECIALIST [facility] WBC/HPF 1 <6 /HPF 04/28/2024 11:36 PM NET APPLICATION SUPPORT SPECIALIST [facility] RBC/HPF 3 <6 /HPF 04/28/2024 11:36 PM NET APPLICATION SUPPORT SPECIALIST [facility] BACTERIA (U) RARE(A) NONE /HPF 04/28/2024 11:36 PM NET APPLICATION SUPPORT SPECIALIST [facility] SQUAMOUS EPITHELIALS RARE /HPF 04/28/2024 11:36 PM NET APPLICATION SUPPORT SPECIALIST [facility] URINE SPECIMEN OBTAINED BY CLEAN CATCH PROCEDURE / Unknown 04/28/2024 9:12 PM NET APPLICATION SUPPORT SPECIALIST us June Maddox MD URINE ORDERABLES Final Result [facility] [address] [place] [address], [place] [phone] * OSMOLALITY, URINE (04/28/2024 9:12 PM NET APPLICATION SUPPORT SPECIALIST) OSMOLALITY (U) 267 50 - 1,200 MOSM/KG 04/29/2024 12:02 AM NET APPLICATION SUPPORT SPECIALIST [facility] URINE SPECIMEN / Unknown 04/28/2024 9:12 PM NET APPLICATION SUPPORT SPECIALIST Betty Romero MUSEUM EDUCATOR URINE ORDERABLES Final R esult [facility] [address] [place] [address], * CT CHEST+ABD+PEL WO CON (04/28/2024 6:56 PM NET APPLICATION SUPPORT SPECIALIST) Anatomical Region Laterality Modality Chest, Abdomen, Pelvis Computed Tomography 04/28/2024 7:41 PM NET APPLICATION SUPPORT SPECIALIST Impressions 04/28/2024 7:48 PM NET APPLICATION SUPPORT SPECIALIST IMPRESSION: 1. Small ill-defined pulmonary opacities in the right upper and lower lobe, as well as focal round glass/nodular opacity in the right middle lobe, possibly infectious. Advise short interval follow-up to confirm resolution. 2. Atherosclerosis. Coronary artery calcifications. 3. Diverticulosis. 4. Please see above for additional chronic, incidental, and nonemergent findings elsewhere. Referred By: Interpreted By: Cristofer Edouard MD, 04/28/2024 7:41 PM Narrative 04/28/2024 7:48 PM NET APPLICATION SUPPORT SPECIALIST [facility] [address] [place], [place] [address] EXAMINATION: CT Chest, Abdomen and Pelvis without contrast CLINICAL HISTORY: Cough. Abdominal pain. Vomiting. COMPARISON: CT abdomen and pelvis 04/22/2024 TECHNIQUE: Computed tomography of the chest, abdomen, and pelvis was obtained without administration of intravenous contrast according to routine protocol. A dose lowering technique was used for this procedure, which may include, but is not limited to, dose reduction technique, automated exposure control, the use of iterative reconstruction, and ALARA (As Low As Reasonably Achievable) / Image Gently techniques. FINDINGS: CHEST: Normal heart size. Atherosclerotic calcifications noted along the aorta and mediastinal great vessels. Aberrant right subclavian artery coursing posterior to the esophagus. Coronary artery calcifications. No pleural or pericardial effusions. No bulky axillary or mediastinal lymphadenopathy. Hilar lymph nodes not well assessed without intravenous contrast. Granulomatous calcifications. Trachea and proximal airways patent. Focal ill-defined groundglass and nodular opacities in the right middle lobe. Additional subtle ill-defined opacities in the right upper and left lower lobes. Scattered sub-6 mm pulmonary nodules. ABDOMEN/PELVIS: Gallbladder not well-visualized. Stable tiny hypodensity in the right lobe of liver near the dome. Granulomatous calcifications in the spleen. Bilateral renal cysts, some of which appear proteinaceous/hemorrhagic. No radiodense urolithiasis. No hydronephrosis or hydroureter. Adrenal glands unremarkable. Pancreatic parenchyma not well evaluated without intravenous contrast. Atherosclerotic calcifications noted along the aorta and its branches. No bulky mesenteric or retroperitoneal lymphadenopathy. Small hiatal hernia. Mildly distended stomach. Small bowel loops nondilated. Appendix not well visualized. Colonic diverticulosis. No findings of bowel obstruction. No free fluid or free air in the abdomen. Sigmoid diverticulosis. Status post hysterectomy. Bladder underdistended. No pelvic ascites. Pelvic vascular calcifications. No bulky pelvic or inguinal lymphadenopathy. BONES/SOFT TISSUES: Degenerative changes noted in the spine. Arthritic changes noted in the hips. Procedure Note Cristofer Edouard MD - 04/28/[address] [address] EXAMINATION: CT Chest, Abdomen and Pelvis without contrast CLINICAL HISTORY: Cough. Abdominal pain. Vomiting. COMPARISON: CT abdomen and pelvis 04/22/2024 TECHNIQUE: Computed tomography of the chest, abdomen, and pelvis wasobtained without administration of intravenous contrast according toroutine protocol. A dose lowering technique was used for this procedure, which may include,but is not limited to, dose reduction technique, automated exposurecontrol, the use of iterative reconstruction, and ALARA (As Low AsReasonably Achievable) / Image Gently techniques. FINDINGS: CHEST: Normal heart size. Atherosclerotic calcifications noted along the aortaand mediastinal great vessels. Aberrant right subclavian artery coursingposterior to the esophagus. Coronary artery calcifications. No pleural orpericardial effusions. No bulky axillary or mediastinal lymphadenopathy.Hilar lymph nodes not well assessed without intravenous contrast.Granulomatous calcifications. Trachea and proximal airways patent. Focalill-defined groundglass and nodular opacities in the right middle lobe.Additional subtle ill-defined opacities in the right upper and left lowerlobes. Scattered sub-6 mm pulmonary nodules. ABDOMEN/PELVIS: Gallbladder not well-visualized. Stable tiny hypodensity in the right lobeof liver near the dome. Granulomatous calcifications in the spleen.Bilateral renal cysts, some of which appear proteinaceous/hemorrhagic. Noradiodense urolithiasis. No hydronephrosis or hydroureter. Adrenal glandsunremarkable. Pancreatic parenchyma not well evaluated without intravenouscontrast. Atherosclerotic calcifications noted along the aorta and itsbranches. No bulky mesenteric or retroperitoneal lymphadenopathy. Small hiatal hernia. Mildly distended stomach. Small bowel loopsnondilated. Appendix not well visualized. Colonic diverticulosis. Nofindings of bowel obstruction. No free fluid or free air in the abdomen. Sigmoid diverticulosis. Status post hysterectomy. Bladder underdistended.No pelvic ascites. Pelvic vascular calcifications. No bulky pelvic oringuinal lymphadenopathy. BONES/SOFT TISSUES: Degenerative changes noted in the spine. Arthritic changes noted in thehips. IMPRESSION: 1. Small ill-defined pulmonary opacities in the right upper and lowerlobe, as well as focal round glass/nodular opacity in the right middlelobe, possibly infectious. Advise short interval follow-up to confirmresolution. 2. Atherosclerosis. Coronary artery calcifications. 3. Diverticulosis. 4. Please see above for additional chronic, incidental, and nonemergentfindings elsewhere. Referred By: Interpreted By: Cristofer Edouard MD, 04/28/2024 7:41 PM us Atiya Herring MD CT Final Result * ECG 12 lead (04/28/2024 8:32 AM NET APPLICATION SUPPORT SPECIALIST) Only the most recent of2 resultswithin the time period is included. 04/28/2024 8:32 AM NET APPLICATION SUPPORT SPECIALIST Narrative 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 [address] [place] [address] Test Date: 2024-04-28 Pat Name: [facility] Department: 41 Room: [facility] Gender: Female Instrument Mechanic: [id number] : 1935 Requested By: JUNE MADDOX Order Number: [id number] Reading : Romain Gann Measurements Intervals [place] Rate: 68 P: 76 WY: 186 QRS: 70 QRSD: 90 T: 74 QT: 398 QTc: 425 Interpretive Statements SINUS RHYTHM Compared to ECG 04/22/2024 13:20:43 No significant changes Other ischemic changes, not STEMI Preliminary EKG Interpretation by June Maddox M.D APPLICATION SUPPORT SPECIALIST us June Maddox MD ECG ORDERABLES Final Result [facility] * TROPONIN, QUANT (04/28/2024 8:27 AM NET APPLICATION SUPPORT SPECIALIST) Only the most recent of2 resultswithin the time period is included. [facility] TROPONIN I HIGH SENSITIVITY 21 <54 ng/L 04/28/2024 9:16 AM NET APPLICATION SUPPORT SPECIALIST [facility] Comment: HIGH DOSES OF BIOTIN, TROPONIN-SPECIFIC AUTOANTIBODIES, AND ANTIBODY THERAPY CONTAINING HAMA MAY INTERFERE WITH THIS TEST RESULT. CORRELATION TO CLINICAL HISTORY AND PRESENTATION RECOMMENDED. 04/28/2024 8:27 AM NET APPLICATION SUPPORT SPECIALIST us June Maddox MD LABORATORY Final Result Performing Organization Address City/[facility]/ZIP Co de Phone Number [facility] [address] [place] [address], [place] [phone] * LIPASE (04/28/2024 8:27 AM NET APPLICATION SUPPORT SPECIALIST) [facility] LIPASE 36 13 - 75 UNITS/L 04/28/2024 9:16 AM NET APPLICATION SUPPORT SPECIALIST [facility] 04/28/2024 8:27 AM NET APPLICATION SUPPORT SPECIALIST June Maddox MD LABORATORY Final Result Performing Organization Address City/[facility]/ZIP Co de Phone Number [facility] [address] [place] [address], [place] [phone] * RESPIRATORY PCR PANEL 2 (04/28/2024 8:18 AM NET APPLICATION SUPPORT SPECIALIST) [facility] ADENOVIRUS PCR (RESP) NOT DETECTED NOT DETECTED 04/28/2024 1:59 PM NET APPLICATION SUPPORT SPECIALIST [facility] CORONAVIRUS 229E PCR (RESP) NOT DETECTED NOT DETECTED 04/28/2024 1:59 PM NET APPLICATION SUPPORT SPECIALIST [facility] CORONAVIRUS HKU1 PCR (RESP) NOT DETECTED NOT DETECTED 04/28/2024 1:59 PM NET APPLICATION SUPPORT SPECIALIST [facility] CORONAVIRUS NL63 PCR (RESP) NOT DETECTED NOT DETECTED 04/28/2024 1:59 PM NET APPLICATION SUPPORT SPECIALIST [facility] CORONAVIRUS OC43 PCR (RESP) NOT DETECTED NOT DETECTED 04/28/2024 1:59 PM NET APPLICATION SUPPORT SPECIALIST [facility] METAPNEUMOVIRUS PCR (RESP) NOT DETECTED NOT DETECTED 04/28/2024 1:59 PM NET APPLICATION SUPPORT SPECIALIST [facility] RHINOVIRUS/ENTEROV IRUS PCR (RESP) NOT DETECTED NOT DETECTED 04/28/2024 1:59 PM NET APPLICATION SUPPORT SPECIALIST [facility] INFLUENZA A PCR (RESP) NOT DETECTED NOT DETECTED 04/28/2024 1:59 PM NET APPLICATION SUPPORT SPECIALIST [facility] INFLUENZA B PCR (RESP) NOT DETECTED NOT DETECTED 04/28/2024 1:59 PM NET APPLICATION SUPPORT SPECIALIST [facility] PARAINFLUENZA 1 PCR (RESP) NOT DETECTED NOT DETECTED 04/28/2024 1:59 PM NET APPLICATION SUPPORT SPECIALIST [facility] PARAINFLUENZA 2 PCR (RESP) NOT DETECTED NOT DETECTED 04/28/2024 1:59 PM NET APPLICATION SUPPORT SPECIALIST [facility] PARAINFLUENZA 3 PCR (RESP) NOT DETECTED NOT DETECTED 04/28/2024 1:59 PM NET APPLICATION SUPPORT SPECIALIST [facility] PARAINFLUENZA 4 PCR (RESP) NOT DETECTED NOT DETECTED 04/28/2024 1:59 PM NET APPLICATION SUPPORT SPECIALIST [facility] RSV PCR (RESP) NOT DETECTED NOT DETECTED 04/28/2024 1:59 PM NET APPLICATION SUPPORT SPECIALIST [facility] B PARAPERTUSIS PCR (RESP) NOT DETECTED NOT DETECTED 04/28/2024 1:59 PM NET APPLICATION SUPPORT SPECIALIST [facility] BORDETELLA PERTUSSIS PCR (RESP) NOT DETECTED NOT DETECTED 04/28/2024 1:59 PM NET APPLICATION SUPPORT SPECIALIST [facility] CHLAMYDOPHILA PNEUMONIAE PCR (RESP) NOT DETECTED NOT DETECTED 04/28/2024 1:59 PM NET APPLICATION SUPPORT SPECIALIST [facility] MYCOPLASMA PNEUMONIAE PCR (RESP) NOT DETECTED NOT DETECTED 04/28/2024 1:59 PM NET APPLICATION SUPPORT SPECIALIST [facility] CORONAVIRUS SARS COV 2 PCR (RESP) NOT DETECTED NOT DETECTED 04/28/2024 1:59 PM NET APPLICATION SUPPORT SPECIALIST [facility] NASOPHARYNGEAL SWAB / Unknown 04/28/2024 8:18 AM NET APPLICATION SUPPORT SPECIALIST us Betty Romero MUSEUM EDUCATOR MICROBIOLOGY - GENERAL O RDERABLES Final Result [facility] [address] [place] [address], [place] [phone] * CT ABD+PEL W CON (04/22/2024 3:25 PM NET APPLICATION SUPPORT SPECIALIST) Anatomical Region Laterality Modality Abdomen Computed Tomogra phy 04/22/2024 3:32 PM NET APPLICATION SUPPORT SPECIALIST Impressions 04/22/2024 3:58 PM NET APPLICATION SUPPORT SPECIALIST IMPRESSION: SMALL HIATAL HERNIA. SOLITARY SUBCENTIMETER PROBABLE INTRAHEPATIC AND BILATERAL RENAL CORTICAL CYSTS, ALTHOUGH TOO SMALL TO CHARACTERIZE. 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 Referred By: Interpreted By: Elijah Pretty MD, 04/22/2024 3:32 PM Narrative 04/22/2024 3:58 PM NET APPLICATION SUPPORT SPECIALIST [facility] [address] [place] [address] EXAM: CT ABD+PEL W CON INDICATION: Mid [...] Procedure Note Elijah Pretty MD - 04/22/2024 [facility] [address] [facility] [place] [address] EXAM: CT ABD+PEL W CON INDICATION: Mid [...] By: Elijah Pretty MD, 04/22/2024 3:32 PM us Francisco Barreto MD CT Final Result * URINALYSIS MICRO ONLY (04/22/2024 2:35 PM NET APPLICATION SUPPORT SPECIALIST) WBC/HPF NONE SEEN 0 - 5 /HPF 04/22/2024 2:48 PM NET APPLICATION SUPPORT SPECIALIST [facility] RBC/HPF 0-5 0 - 5 /HPF 04/22/2024 2:48 PM NET APPLICATION SUPPORT SPECIALIST [facility] EPI/HPF FEW /HPF 04/22/2024 2:48 PM NET APPLICATION SUPPORT SPECIALIST [facility] 04/22/2024 2:35 PM NET APPLICATION SUPPORT SPECIALIST us Francisco Barreto MD URINE ORDERABLES Final Result Performing Organization Address City/State/[place] Co de Phone Number [facility] [address] [place] [address], [place] [phone] * XR CHEST PORTABLE (04/22/2024 1:25 PM NET APPLICATION SUPPORT SPECIALIST) Anatomical Region Laterality Modality Chest Radiographic Tasia ging 04/22/2024 1:36 PM NET APPLICATION SUPPORT SPECIALIST Impressions 04/22/2024 1:37 PM NET APPLICATION SUPPORT SPECIALIST IMPRESSION: NO ACUTE CHEST DISEASE. Referred By: Interpreted By: Elijah Pretty MD, 04/22/2024 1:36 PM Narrative 04/22/2024 1:37 PM NET APPLICATION SUPPORT SPECIALIST [facility] [address] [facility] [place] [address] EXAM: XR CHEST PORTABLE INDICATION: Cough. TECHNIQUE: AP upright view of the chest obtained. COMPARISON EXAM: None FINDINGS: Mild hyperinflation with pleural-parenchymal scarring. No acute consolidation or effusion. Normal heart size and pulmonary vascular caliber. Old healed right-sided rib fracture. No acute skeletal abnormality. Procedure Note Elijah Pretty MD - 04/22/2024 [place] [id number] [facility] [place] [address] EXAM: XR CHEST PORTABLE INDICATION: Cough. TECHNIQUE: AP upright view of the chest obtained. COMPARISON EXAM: None FINDINGS: Mild hyperinflation with pleural-parenchymal scarring. No acuteconsolidation or effusion. Normal heart size and pulmonary vascularcaliber. Old healed right-sided rib fracture. No acute skeletalabnormality. IMPRESSION: NO ACUTE CHEST DISEASE. Referred By: Interpreted By: Elijah Pretty MD, 04/22/2024 1:36 PM us Francisco Barreto MD GENERAL IMAGING Final Result * STREP A RAPID (04/22/2024 1:25 PM NET APPLICATION SUPPORT SPECIALIST) RAPID STREP TEST NEGATIVE NEGATIVE 04/22/2024 1:38 PM NET APPLICATION SUPPORT SPECIALIST [facility] 04/22/2024 1:25 PM NET APPLICATION SUPPORT SPECIALIST us Francisco Barreto MD MICROBIOLOGY - GENERAL ORDERABL ES Final Result [facility] [address] [place] [address], * CORONAVIRUS (COVID-19) MOLECULAR (04/22/2024 1:10 PM NET APPLICATION SUPPORT SPECIALIST) CORONAVIRUS SARS COV 2 RNA NEGATIVE NEGATIVE 04/22/2024 1:31 PM NET APPLICATION SUPPORT SPECIALIST [facility] Comment: NEGATIVE RESULTS DO NOT [...] SARS-COV-2. SPECIMEN TYPE NASAL 04/22/2024 1:26 PM NET APPLICATION SUPPORT SPECIALIST [facility] NASOPHARYNGEAL SWAB / Unknown 04/22/2024 1:10 PM NET APPLICATION SUPPORT SPECIALIST us Francisco Barreto MD MICROBIOLOGY - GENERAL ORDERABL ES Final Result Performing Organization Address City/[facility]/ZIP Co de Phone Number [facility] [address] [place] [address], [place] [phone] * (ABNORMAL) PRO-BRAIN NATRIURETIC PEPTIDE (04/22/2024 1:00 PM NET APPLICATION SUPPORT SPECIALIST) PRO-B TYPE NATRIURETIC PEPTIDE 891(H) <450 PG/ML 04/22/2024 1:50 PM NET APPLICATION SUPPORT SPECIALIST [facility] Comment: CUT POINTS ESTABLISHED BY [...] 72% FOR ACUTE CHF. 04/22/2024 1:00 PM NET APPLICATION SUPPORT SPECIALIST Francisco Barreto MD LABORATORY Final Result Performing Organization Address [facility]/ZIP Co de Phone Number [facility] [address] [place] [address], [place] [phone] * INFLUENZA A & B (04/22/2024 12:10 PM NET APPLICATION SUPPORT SPECIALIST) SPECIMEN TYPE NASOPHARYNGEAL SWAB 04/22/2024 1:27 PM NET APPLICATION SUPPORT SPECIALIST [facility] INFLUENZA A NEGATIVE NEGATIVE 04/22/2024 1:47 PM NET APPLICATION SUPPORT SPECIALIST [facility] INFLUENZA B NEGATIVE NEGATIVE 04/22/2024 1:47 PM NET APPLICATION SUPPORT SPECIALIST [facility] NASOPHARYNGEAL SWAB / Unknown 04/22/2024 12:10 PM NET APPLICATION SUPPORT SPECIALIST us Francisco Barreto MD MICROBIOLOGY - GENERAL ORDERABL ES Final Result Performing Organization Address City/[facility]/[place] Co de Phone Number [facility] [address] [place] [address], [place] [phone] * RESP SYNCYTIAL VIRUS (04/22/2024 12:10 PM NET APPLICATION SUPPORT SPECIALIST) SPECIMEN TYPE NASOPHARYNGEAL SWAB 04/22/2024 1:26 PM NET APPLICATION SUPPORT SPECIALIST [facility] RAPID RSV NEGATIVE NEGATIVE 04/22/2024 1:46 PM NET APPLICATION SUPPORT SPECIALIST [facility] NASOPHARYNGEAL SWAB / Unknown 04/22/2024 12:10 PM NET APPLICATION SUPPORT SPECIALIST Francisco Barreto MD MICROBIOLOGY - GENERAL ORDERABL ES Final Result Performing Organization Address City/[facility]/[place] Co de Phone Number [facility] [address] [place] [address], [place] [phone] from Last 3 Months Insurance MEDICARE GENERIC - COMMERCIAL Advance Directives * Full Code (Latest Code Status on File) Date Activated Date Inactivated Comments 04/28/2024 2:13 PM 05/02/2024 5:38 PM Care Teams Police Or Patrol Park Officer Relationship Specialty Start Date End Date Sandro Kim MD [address] [place] [address] PCP - General FAMILY PRACTICE 04/22/24
--- OUTSIDE RECORDS SUMMARY | 2024-05-07 11:27 | XMS_ITS | Clinical Summary ---
Author Organization [facility] Address [address] [place] [address] Phone Care Team Providers Care Cardroom Supervisor Name Role Phone Sandro Kim MD Primary Care Provider [phone] Allergies Active Allergy Reactions Criticality Noted Date [...] Risk Completed 11/02/2017, 01/06/2017, 03/04/2006 Care Teams Cardroom Supervisor Relationship Specialty Start Date End Date Sandro Kim MD [address] [place] [address] PCP - General Family Medicine 10/22/18
--- OUTSIDE RECORDS SUMMARY | 2024-05-07 11:27 | XMS_ITS | Continuity of Care Document ---
Author Organization [facility] Address [address] [place] [address] [place] [address] Phone Care Team Providers Care Storyboard Artist Name Role Phone Jocelyn Kessler Unavailable Unavailable Procedures Procedure Date Office/outpatient Visit, Est Post-op Follow-up Visit Post-op Follow-up Visit Post-op Follow-up Visit Remove Cataract, Insert Lens Eye Exam & Treatment IOLMaster-Professional Advance Directives Directive Yes / No Effective Date File Name No Information Encounters Encounter Description Practice Location Reason(s) For Visit Diagnoses Date Provider Providers Copied on Encounter Office/outpat ient Visit, Est [facility], [address] [place] [address] [address], [place], [place], [id number], tel:[phone] [facility] No Information 7-200 7 Victoria Carrizales [address] , [address], [place], [address], [place]. tel:[phone] [facility], [address] [place] [address] [address], [place], [place], [id number], [place] tel:[phone] [facility] No Information 9200 7 Victoria Carrizales [address] , [address], [place], [address], [place]. tel:[phone] [facility], [address] [place] [address] [address], [place], [place], [id number], tel:[phone] [facility] No Information May-1 1-200 7 Victoria Banks. [address] [facility] [address] , [address], [place], [place], [facility], . tel:[phone] [facility], [address] [place] [address] [address], [place], [place], [id number], tel:[phone] [facility] No Information May-0 3-200 7 Victoria Pruittn. [address] [facility] , [address], [place], [facility], . tel:[phone] [facility], [address] [place] [address] [address], [place], [place], [id number], tel:[phone] [facility] No Information May-0 2-200 7 Victoria Banks. [address] [facility] , [address], [place], [place], [facility], [place]. tel:[phone] [facility], [address] [place] [address] [address], [place], [place], [address], tel:[phone] [facility] No Information Apr-2 0-200 7 Victoria Banks. [address] [facility] , [address], [place], [place], [facility], [place]. tel:[phone] Referring Provider: Jocelyn Gonzalez [address], [place], [facility]. tel:[phone] Family History Family Member Type Diagnosis Age At Onset No Information Payers Payer name Insurance type Covered alliance party ID Jamiea janinamiguel(s) [place] [id number] Social History Type Description Quantity Date Captured [...]
--- OUTSIDE RECORDS SUMMARY | 2024-05-07 11:27 | XMS_ITS | Clinical Summary ---
Author Organization [facility] [address] Address [address] [place] [address] Care Team Providers Care Twister Operator Name Role Phone Sandro Kim MD Primary [...] on file Legal Sex Female 9:33 PM COST CONTROL SPECIALIST Gender Identity Not on file Sexual Orientation Not on file Obstetrics History Last Filed Vital Signs Vital Sign Reading Time Taken Comments Blood Pressure 126/72 01/15/2024 10:43 AM COST CONTROL SPECIALIST Pulse 60 01/15/2024 10:43 AM COST CONTROL SPECIALIST Temperature - - Respiratory Rate 16 01/15/2024 10:43 AM COST CONTROL SPECIALIST Oxygen Saturation 92% 11/30/2022 11:24 AM CDT Inhaled Oxygen Concentration - - Weight 47.6 kg (105 lb) 01/15/2024 10:43 AM COST CONTROL SPECIALIST Height 149.9 cm (4' 11 ) 01/15/2024 10:43 AM COST CONTROL SPECIALIST Body Mass Index 21.21 01/15/2024 10:43 AM COST CONTROL SPECIALIST Plan of Treatment Health Maintenance Due [...] COMMERCIAL GENERIC MEDICARE COMMERCIAL GENERIC Care Teams Twister Operator Relationship Specialty Start Date End Date Sandro Kim MD [address] [address] PCP - General Family Medicine 01/15/24
--- OUTSIDE RECORDS SUMMARY | 2024-05-07 11:27 | XMS_ITS | Referral Summary ---
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 Gender Identity Not on file Sexual Orientation Not on file Last Filed Vital Signs Vital Sign Reading Time Taken Comments Blood Pressure 126/72 01/15/2024 10:43 AM METAL FABRICATOR HELPER Pulse 60 01/15/2024 10:43 AM METAL FABRICATOR HELPER Temperature - - Respiratory Rate 16 01/15/2024 10:43 AM METAL FABRICATOR HELPER Oxygen Saturation 92% 11/30/2022 11:24 AM CDT Inhaled Oxygen Concentration - - Weight 47.6 kg (105 lb) 01/15/2024 10:43 AM METAL FABRICATOR HELPER Height 149.9 cm (4' 11 ) 01/15/2024 10:43 AM METAL FABRICATOR HELPER Body Mass Index 21.21 01/15/2024 10:43 AM METAL FABRICATOR HELPER Plan of Treatment Not on file Insurance MEDICARE COMMERCIAL GENERIC MEDICARE COMMERCIAL GENERIC Care Teams Pl Sql Developer Relationship Specialty Start Date End Date Sandro Kim MD [address] [place] [address] PCP - General Family Medicine 01/15/24
[2024-05-07 14:10] LABS: Toxigenic C. Diff NEGATIVE (NEGATIVE)
== END 2024-05-07 10:06 | disposition home or self-care (01) ==
LOC: ANHLAB 10:07
PROVIDERS: PCP Family Medicine; Visit Provider Family Medicine
DX: D64.9 Anemia, unspecified (principal); R19.7 Diarrhea, unspecified; E87.1 Hypo-osmolality and hyponatremia; R63.4 Abnormal weight loss; R10.84 Generalized abdominal pain; I12.9 Hypertensive chronic kidney disease with stage 1 through stage 4 chronic kidney disease, or unspecified chronic kidney disease; N18.32 Chronic kidney disease, stage 3b
CPT/HCPCS: 36415; 80048; 85025; 87493